=== PATIENT | female | born 1970 | race Two or more races ===

== ENCOUNTER 2020-05-24 11:51 | Outpatient (REF) | payer BC, SELFPAY ==
[2020-05-24 15:07] LABS: Cholesterol 242 mg/dL; HDL Cholesterol 40 mg/dL; LDL Cholesterol Calculated 138 mg/dl; Triglycerides 323 mg/dL
== END 2020-05-24 11:52 | disposition home or self-care (01) ==
LOC: HO.HMGCLDS 11:51
PROVIDERS: PCP Internal Medicine; Visit Provider Internal Medicine
DX: E78.5 Hyperlipidemia, unspecified (principal); F32.9 Major depressive disorder, single episode, unspecified; I10 Essential (primary) hypertension
CPT/HCPCS: 80061

== ENCOUNTER 2020-12-21 13:00 | Outpatient (RCR) | payer BC, SELFPAY ==
--- NOTE | 2020-10-25 10:29 | MHC.PT.EP ---
[facility] [place] Office [place] Office [place] Office [address] Rayshawn Olvera [address] [phone] F: [phone] F: [phone] F: [phone] F: [phone] Physical Therapy Plan of Care Date of Evaluation: 10/25/20 Date of Surgery: Diagnosis: low back pain and sciatica Assessment: The patient has acute low back pain without NANCY. She spends most of her day sitting unsupported with lots of trunk rotation, and using a foot pedal all day. She has been working mandatory OT at work. The patient had ttp during manual palpation of her back and hips. Assessment of her sacrum showed a sacral torsion left on right axis and a left anterior innominant. The patient was educated on her sitting posture. She was asked to take a picture of her workstation for me to assess her work ergonomics. Pt was educated briefly on sitting posture, and log rolling. The patient reports intermittent dyspareunia, as well as deep pain in my pelvis that may warrant an internal exam of her pelvic floor if she does not improve with above listed treatments. This will be addressed in subsequent visits. She is a good candidate for skilled PT to work on work ergonomics, sitting posture, segmental stability, core stabilization Frequency and Duration: The patient will be seen 2x/week x 4 weeks Short Term Goals: 1. Pt to be able to demonstrate improved sitting posture 2. Pt to be able to have improved work ergonomics. 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 Pt to be able to return to 90% of PLOF without limiting pain 2. Pt to be able to return to work and sitting without limiting pain. 3. Pt to be able to have no pain with changing position with sleeping. Treatment Plan: Modalities to reduce pain, spasms and effusion. Manual therapy to restore motion and function. Therapeutic exercise to improve strength and flexibility. Neuromuscular re-education for posture and balance. Therapeutic activities to return to functional activities of daily living. Electronically signed by: Xiomy Slaughter PT DPT Please sign and return to therapist. Thank you for your referral.
--- NOTE | 2020-12-21 13:53 | MHC.PT.DC ---
[facility] Office [place] Office [place] Office [address] Rayshawn Olvera [address] [phone] F: [phone] F: [phone] F: [phone] F: [phone] Physical Therapy Discharge Report Diagnosis: low back pain and sciatica Date of Surgery: Date of Evaluation: 10/25/20 Date of Discharge: 12/21/20 Treatments to Date: 13 Cancellations to Date: No Shows to Date: Discharge Status: Achieved Goals Improved Function Independent with HEP Discharge Summary: Pt arrived reporting she had no pain today. She reports while she was stretching she felt like something popped and went back into place. The heel lift has been helping tremendously, which was issued last visit ( one level in her right shoe) She is independent with her HEP. She was issued pictures and theraband. Electronically signed by: Xiomy Slaughter PT DPT Please sign and return to therapist. Thank you for your referral.
== END 2020-12-22 08:00 | disposition home or self-care (01) ==
LOC: HO.PT 13:00
PROVIDERS: PCP Internal Medicine; Visit Provider Physician Assistant
DX: M54.40 Lumbago with sciatica, unspecified side (principal)
CPT/HCPCS: 97110; 97112; 97140; 97162; 97530

== ENCOUNTER 2021-04-27 09:47 | Outpatient (REF) | payer BC, SELFPAY ==
[2021-04-27 11:33] LABS: Hematocrit 41.8 % (37-47); Hemoglobin 13.9 g/dl (12.0-16.0); Mean Corpuscular HGB Conc 33.3 g/dl (31.0-35.0); Mean Corpuscular Volume 90.1 fL (80-98); Mean Platelet Volume 9.9 fL (9.4-12.3); Platelet Count 281 X10*3/uL (160-400); Red Blood Count 4.64 X10*6/uL (4.20-5.50); Red Cell Distribution Width 13.3 % (11.0-16.0); White Blood Count 7.5 X10*3/uL (4.8-10.8)
[2021-04-27 11:55] LABS: Alanine Aminotransferase 54 U/L (0-31); Albumin Level 4.3 g/dL (3.5-5.0); Alkaline Phosphatase 89 U/L (39-117); Anion Gap 13 (12-20); Aspartate Amino Transferase 31 U/L (5-31); Bilirubin Total 0.8 mg/dL (0.0-1.0); Blood Urea Nitrogen 9 mg/dL (9-16); Calcium 9.5 mg/dL (8.4-10.2); Carbon Dioxide 27 mmol/L (22-29); Chloride 105 mmol/L (96-108); Cholesterol 256 mg/dL; Estimated Glomerular Filt Rate > 60; Glucose Fasting 95 mg/dL (60-99); HDL Cholesterol 39 mg/dL; LDL Cholesterol Calculated 148 mg/dl; Potassium 4.6 mmol/L (3.3-5.1); Sodium 140 mmol/L (135-145); Total Protein 6.7 g/dL (6.5-8.0); Triglycerides 347 mg/dL
[2021-04-27 12:18] LABS: TSH reflex Free T4 2.07 uIU/mL (0.32-4.0)
[2021-04-28 07:31] LABS: Estimated Average Glucose 94 mg/dL; Hemoglobin A1c % 4.9 %
== END 2021-04-27 09:48 | disposition home or self-care (01) ==
LOC: HO.HMGCLDS 09:47
PROVIDERS: PCP Internal Medicine; Visit Provider Internal Medicine
DX: Z00.00 Encounter for general adult medical examination without abnormal findings (principal); I10 Essential (primary) hypertension; E78.5 Hyperlipidemia, unspecified; F41.9 Anxiety disorder, unspecified
CPT/HCPCS: 36415; 80053; 80061; 83036; 84443; 85027

== ENCOUNTER 2021-05-31 10:54 | Outpatient (REF) | payer BC, SELFPAY ==
--- NOTE | ~2021-05-31 | MM_ITS ---
EXAMINATION: MM SCREENING DIGITAL BREAST TOMOSYNTHESIS, BILATERAL CLINICAL INFORMATION: Screening. Asymptomatic. The lifetime risk of breast cancer based on the Tyrer-Cuzick Model is 12%. COMPARISON: Mammography: 09/13/2016 TECHNIQUE: Digital breast tomosynthesis is performed in both the craniocaudal and mediolateral oblique views along with computer-aided detection (CAD). Synthesized 2D images are generated from the tomosynthesis. FINDINGS: There are scattered areas of fibroglandular density (ACR BI-RADS breast composition Category b). Parenchymal pattern borders on heterogeneously dense. There is fibronodular pattern similar to prior exam. There is no interval mass or architectural abnormality or abnormal calcifications. The axilla and skin contours are unremarkable. MM/MM tomosynthesis screening BI IMPRESSION: No mammographic evidence of malignancy. ASSESSMENT: BI-RADS 2: Benign RECOMMENDATION: Routine annual mammography screening. This patient's information was entered into a reminder system with a target due date for their next mammogram.
== END 2021-05-31 10:55 | disposition home or self-care (01) ==
LOC: HO.MAMMO 10:54
PROVIDERS: Visit Provider Internal Medicine
DX: Z12.31 Encounter for screening mammogram for malignant neoplasm of breast (principal)
CPT/HCPCS: 77063; 77067

== ENCOUNTER 2021-11-02 11:30 | Outpatient (REF) | payer BC, SELFPAY ==
[2021-11-02 13:39] LABS: Hematocrit 41.9 % (37.0-47.0); Hemoglobin 13.8 g/dl (12.0-16.0); Mean Corpuscular HGB Conc 32.9 g/dl (31.0-35.0); Mean Corpuscular Hemoglobin 29.7 pg (27.0-33.0); Mean Corpuscular Volume 90.1 fL (80.0-98.0); Platelet Count 349 X10*3/uL (160-400); Red Blood Count 4.65 X10*6/uL (4.20-5.50); Red Cell Distribution Width 12.9 % (11.0-16.0); White Blood Count 7.1 X10*3/uL (4.8-10.8)
[2021-11-02 14:10] LABS: Alanine Aminotransferase 65 U/L (0-31); Albumin Level 4.2 g/dL (3.5-5.0); Alkaline Phosphatase 93 U/L (39-117); Anion Gap 12 (12-20); Aspartate Amino Transferase 41 U/L (5-31); Bilirubin Total 0.8 mg/dL (0.0-1.0); Blood Urea Nitrogen 9 mg/dL (9-16); Calcium 9.4 mg/dL (8.4-10.2); Carbon Dioxide 27 mmol/L (22-29); Chloride 106 mmol/L (96-108); Cholesterol 263 mg/dL; Estimated Glomerular Filt Rate > 60; Glucose Fasting 99 mg/dL (60-99); HDL Cholesterol 35 mg/dL; LDL Cholesterol Calculated 172 mg/dl; Potassium 4.3 mmol/L (3.3-5.1); Sodium 141 mmol/L (135-145); Total Protein 7.1 g/dL (6.5-8.0); Triglycerides 282 mg/dL
== END 2021-11-02 11:31 | disposition home or self-care (01) ==
LOC: HO.HMGCLDS 11:30
PROVIDERS: PCP Internal Medicine; Visit Provider Internal Medicine
DX: E78.5 Hyperlipidemia, unspecified (principal); I10 Essential (primary) hypertension
CPT/HCPCS: 36415; 80053; 80061; 85027

== ENCOUNTER 2022-05-01 11:56 | Outpatient (REF) | payer BC, SELFPAY ==
--- NOTE | ~2022-05-01 | XR_ITS ---
EXAMINATION: XR MANDIBLE CLINICAL INFORMATION: Inflammatory conditions of jaw COMPARISON: None TECHNIQUE: 4 views of the mandible were obtained. FINDINGS: There are no fractures or dislocations. No bone, joint or soft tissue abnormality is demonstrated. Mild degenerative changes of the visualized cervical spine. Visualized lung apices are well aerated. Visualized paranasal sinuses appear well aerated. XR/XR mandible min 4V IMPRESSION: Unremarkable examination.
[2022-05-01 14:06] LABS: MANUAL DIFF FLAG NO
[2022-05-01 14:16] LABS: Basophils Percent Auto 0.5 % (0-2); Eosinophils Absolute Auto 0.4 X10*3/uL (0.0-0.4); Eosinophils Percent Auto 5.6 % (0-4); Hematocrit 41.9 % (37.0-47.0); Hemoglobin 13.5 g/dl (12.0-16.0); Imm Gran Abs Auto 0.02 X10*3/uL (0.00-0.03); Imm Gran Pct Auto 0.3 % (0.0-0.4); Lymphocytes Absolute Auto 2.5 X10*3/uL (1.2-4.9); Lymphocytes Percent Auto 37.9 % (20-40); Mean Corpuscular HGB Conc 32.2 g/dl (31.0-35.0); Mean Corpuscular Volume 89.9 fL (80.0-98.0); Mean Platelet Volume 10.1 fL (9.4-12.3); Monocytes Absolute Auto 0.7 X10*3/uL (0.1-1.2); Neutrophils Percent Auto 45.7 % (45-73); Platelet Count 312 X10*3/uL (160-400); Red Blood Count 4.66 X10*6/uL (4.20-5.50); Red Cell Distribution Width 13.2 % (11.0-16.0); White Blood Count 6.6 X10*3/uL (4.8-10.8)
[2022-05-01 14:29] LABS: Alanine Aminotransferase 46 U/L (0-31); Albumin Level 4.4 g/dL (3.5-5.0); Alkaline Phosphatase 82 U/L (39-117); Anion Gap 13 (12-20); Aspartate Amino Transferase 29 U/L (5-31); Bilirubin Total 0.5 mg/dL (0.0-1.0); Blood Urea Nitrogen 10 mg/dL (9-16); Calcium 9.3 mg/dL (8.4-10.2); Carbon Dioxide 27 mmol/L (22-29); Chloride 106 mmol/L (96-108); Cholesterol 251 mg/dL; Estimated Glomerular Filt Rate > 60; Glucose Fasting 98 mg/dL (60-99); HDL Cholesterol 37 mg/dL; LDL Cholesterol Calculated 155 mg/dl; Potassium 4.5 mmol/L (3.3-5.1); Sodium 141 mmol/L (135-145); Total Protein 7.1 g/dL (6.5-8.0); Triglycerides 299 mg/dL
[2022-05-01 14:52] LABS: TSH reflex Free T4 1.89 uIU/mL (0.32-4.0); Vitamin D 25-OH Total 35.4 ng/mL (>30)
[2022-05-01 17:00] LABS: Appearance Urine Turbid; Color Urine Yellow; Glucose Urine UA Negative (Negative); Leukocyte Esterase Urine Trace (Negative); Nitrite Urine Negative (Negative); PH 5.5 (5.0-9.0); UMIC TRIGGER UA YES; Urine Blood Negative (Negative); Urine Ketones Negative (Negative); Urine Protein Negative (Neg-Trace)
[2022-05-01 17:06] LABS: Bacteria Urine None Seen (None Seen); Hyaline Casts Urine 0-2 /LPF (0-2); RBC Urine 0-2 /HPF (0-2); WBC Urine 0-5 /HPF (0-5)
== END 2022-05-01 11:57 | disposition home or self-care (01) ==
LOC: HO.HMGCX 11:56
PROVIDERS: PCP Internal Medicine; Visit Provider Internal Medicine
DX: Z00.00 Encounter for general adult medical examination without abnormal findings (principal); M27.2 Inflammatory conditions of jaws; E78.5 Hyperlipidemia, unspecified; I10 Essential (primary) hypertension
CPT/HCPCS: 36415; 70110; 80053; 80061; 81001; 82306; 84443; 85025

== ENCOUNTER 2022-06-03 10:43 | Outpatient (REF) | payer BC, SELFPAY ==
--- NOTE | ~2022-06-03 | MM_ITS ---
EXAMINATION: MM SCREENING DIGITAL BREAST TOMOSYNTHESIS, BILATERAL CLINICAL INFORMATION: Screening. Asymptomatic. The lifetime risk of breast cancer based on the Tyrer-Cuzick Model is 9.5%. COMPARISON: Mammography: May 31, 2021 and September 13, 2016 TECHNIQUE: Digital breast tomosynthesis is performed in both the craniocaudal and mediolateral oblique views along with computer-aided detection (CAD). Synthesized 2D images are generated from the tomosynthesis. FINDINGS: The breasts are heterogeneously dense, which may obscure small masses (ACR BI-RADS breast composition Category c). There are no significant masses, abnormal calcifications, or other abnormalities. MM/MM tomosynthesis screening BI IMPRESSION: No significant changes from prior exam. ASSESSMENT: BI-RADS 1: Negative RECOMMENDATION: Routine annual mammography screening. This patient's information was entered into a reminder system with a target due date for their next mammogram.
== END 2022-06-03 10:44 | disposition home or self-care (01) ==
LOC: HO.MAMMO 10:43
PROVIDERS: PCP Internal Medicine; Visit Provider Internal Medicine
DX: Z12.31 Encounter for screening mammogram for malignant neoplasm of breast (principal)
CPT/HCPCS: 77063; 77067

== ENCOUNTER 2022-07-08 11:32 | Outpatient (REF) | payer BC, SELFPAY ==
[2022-07-08 14:29] LABS: Alanine Aminotransferase 59 U/L (0-31); Albumin Level 4.4 g/dL (3.5-5.0); Alkaline Phosphatase 87 U/L (39-117); Anion Gap 12 (12-20); Aspartate Amino Transferase 34 U/L (5-31); Bilirubin Total 0.6 mg/dL (0.0-1.0); Blood Urea Nitrogen 10 mg/dL (9-16); Calcium 9.6 mg/dL (8.4-10.2); Carbon Dioxide 26 mmol/L (22-29); Chloride 106 mmol/L (96-108); Cholesterol 177 mg/dL; Estimated Glomerular Filt Rate > 60; Glucose Fasting 103 mg/dL (60-99); HDL Cholesterol 42 mg/dL; LDL Cholesterol Calculated 92 mg/dl; Potassium 4.1 mmol/L (3.3-5.1); Sodium 140 mmol/L (135-145); Triglycerides 218 mg/dL
== END 2022-07-08 11:33 | disposition home or self-care (01) ==
LOC: HO.HMGCLDS 11:32
PROVIDERS: PCP Internal Medicine; Visit Provider Internal Medicine
DX: E78.5 Hyperlipidemia, unspecified (principal)
CPT/HCPCS: 36415; 80053; 80061

== ENCOUNTER 2022-08-14 10:38 | Outpatient (REF) | payer BC, SELFPAY ==
[2022-08-14 15:09] LABS: CT PCR NOT DETECTED (Not Detect.); NG PCR NOT DETECTED (Not Detect.)
[2022-08-15 08:04] LABS: Follicle Stimulating Hormone 78.3 mIU/mL
[2022-08-27 16:30] LABS: HPV mRNA E6/E7 rflx Not Detected (Not Detected)
== END 2022-08-14 10:39 | disposition home or self-care (01) ==
LOC: HO.LNP 10:38
PROVIDERS: PCP Internal Medicine; Visit Provider Advanced Practice Midwife
DX: Z01.419 Encounter for gynecological examination (general) (routine) without abnormal findings (principal); R23.2 Flushing; Z97.5 Presence of (intrauterine) contraceptive device; Z30.431 Encounter for routine checking of intrauterine contraceptive device
CPT/HCPCS: 0353U; 83001; 87624; 88142

== ENCOUNTER 2022-08-21 12:54 | Outpatient (REF) | payer BC, SELFPAY | END 2022-08-21 12:55 | disposition home or self-care (01) | LOC: HO.LNP 12:54 | PROVIDERS: Visit Provider Advanced Practice Midwife | DX: Z13.89 Encounter for screening for other disorder (principal) ==

== ENCOUNTER 2023-05-21 16:32 | Inpatient (IN) | payer BC, SELFPAY ==
[2023-05-21 17:20] VITALS: BP 177/108; PULSE 108; RESP 20; TEMP 36.5; O2SAT 98; BMI 35.0
[2023-05-21] MEDS: diphenhydrAMINE HCL 50 MG/ML VIAL IM (17:30)
[2023-05-21] MEDS: LORazepam 2 MG/ML VIAL IM (17:30)
[2023-05-21] MEDS: Haloperidol Lactate 5 MG/ML VIAL IM (17:30)
--- NOTE | 2023-05-21 17:48 | ED.PSYCH ---
HPI - Psych General Chief Complaint: Psychiatric Symptoms Stated Complaint: sect. 12 via CHD, anxiety, confused Time Seen by Provider: 05/21/23 16:57 Source: family Mode of arrival: ambulatory Limitations: no limitations History of Present Illness HPI Narrative: Patient comes to the emergency room accompanied by her . Patient and her are Pashto speaking only. Formation was obtained mostly through the via ANDREA logistics team lead. Patient is unable to give any history, patient smiles, walks away in circles, does not know why she is here. The explains that the patient has been acting anxious, confused, states that the he is unaware if the patient has been taking his psychiatric medications, does not know which medications he takes. Related Data Home Medications Medication Instructions Recorded Confirmed cariprazine 1.5 mg capsule 1.5 mg PO Q OTHER DAY 10/14/20 05/21/23 (Vraylar) escitalopram oxalate 10 mg tablet 15 mg PO DAILY 10/19/20 05/21/23 trazodone 50 mg tablet 50 mg PO BEDTIME PRN insomnia 05/21/23 05/21/23 Previous Rx's Medication Instructions Recorded rosuvastatin 10 mg tablet (Crestor) 10 mg PO DAILY #90 tabs 07/09/22 lisinopril 5 mg tablet 5 mg PO DAILY #90 tabs 05/20/23 Allergies Allergy/AdvReac Type Severity Reaction Status Date / Time povidone-iodine [Betadine] Allergy Unknown discomfort, Verified 01/02/23 09:55 no swelling or pain soap [Betadine] Allergy Unknown discomfort, Verified 01/02/23 09:55 no swelling or pain Review of Systems Review of Systems: Yes Unobtainable due to mental condition [facility] Past Medical History Medical History Normal colonoscopy Annual physical exam Psychosis Depression Chronic anxiety Hyperlipidemia HTN (hypertension) Surgical History Hx of cholecystectomy Family History Family History Father Glaucoma Mother Arthritis Maternal Aunt Breast cancer Social History Social History Housing: House Alcohol intake: current Alcohol intake frequency: does not drink Patient Tobacco Use Status: Never used Tobacco e-Cigarette/Vaping Use: Never Used Advance Directives: No Advance Directives Information Provided: No Current occupational status: employed Cognitive needs: No Hearing needs: No Vision needs: Yes Physical Exam Vital Signs: Vital Signs: Last Vital Signs Temp 97.5 F 05/21/23 18:15 Pulse 101 H 05/21/23 18:15 Resp 18 05/21/23 18:15 BP 146/101 H 05/21/23 18:15 Pulse Ox 98 05/21/23 18:15 O2 Del Method Room Air 05/21/23 18:15 BMI result Body Mass Index 35.0 Const: Other: Appearance: Alert. No acute distress Eyes: Pupils equal, round and reactive to light. ENT: Pharynx normal. Neck: Normal inspection. Neck supple. No lymph nodes noted. No crepitus CVS: Normal heart rate and rhythm. Pulses normal. Normal S1 and S2 Respiratory: No respiratory distress. Breath sounds normal. No Wheezing. No rales Abdomen: Soft and nontender. No rigidity. No distention. Skin: Skin warm and dry. Normal skin color. Normal skin turgor. Extremities: No lower extremity edema. No Lacerations. No Rash Neuro: A deficits, Moving all extremities. No slurred speech. CN 2 through 12 grossly intact Psych: calm, cooperative, patient speaking to logistics team lead, then stops talking, walks away, comes back, patient seems scattered Medications Administered Discontinued Medications Generic Name Dose Route Start Last Admin Trade Name Freq PRN Reason Stop Dose Admin Diphenhydramine HCl 50 mg 05/21/23 17:47 05/21/23 17:30 Diphenhydramine Hcl 50 Mg/Ml Vial IM 05/21/23 17:48 50 mg ONCE ONE Administration Haloperidol Lactate 5 mg 05/21/23 17:47 05/21/23 17:30 Haloperidol Lactate 5 Mg/Ml Vial IM 05/21/23 17:48 5 mg STAT STA Administration Lorazepam 2 mg 05/21/23 17:47 05/21/23 17:30 Lorazepam 2 Mg/Ml Vial IM 05/21/23 17:48 2 mg STAT STA Administration Medical Decision Making Medical Decision Making MDM Narrative: -my interpretation of labs: Normal hematology, normal chemistry, LFTs slightly elevated, chronic. Urinalysis pending, urine toxicology pending -patient is on a Section 12, patient's agreeable -care team consult pending -per patient's past medical history history, seems that patient was hospitalized in March of 2020 for psychosis Differential Diagnosis Differential Diagnoses: The differential diagnosis associated with the presentation includes (Psychosis, anxiety, depression) Admission/Observation Consideration of admission/observation: Escalation of care including admission/observation considered (Patient will likely need inpatient treatment. Patient on a Section 12, disposition pending by the care team) Lab Data MDM Lab Attestation statement: I reviewed the patient's lab results. 05/21/23 17:56 05/21/23 17:56 Labs: Lab Results 05/21/23 Range/Units 17:56 WBC 9.0 (4.8-10.8) X10*3/uL RBC 5.29 (4.20-5.50) X10*6/uL Hgb 15.4 (12.0-16.0) g/dl Hct 46.2 (37.0-47.0) % MCV 87.3 (80.0-98.0) fL MCH 29.1 (27.0-33.0) pg MCHC 33.3 (31.0-35.0) g/dl RDW 13.1 (11.0-16.0) % Plt Count 356 (160-400) X10*3/uL MPV 9.4 (9.4-12.3) fL Immature Gran % (Auto) 0.2 (0.0-0.4) % Neut % (Auto) 67.3 (45-73) % Lymph % (Auto) 23.8 (20-40) % Wharton % (Auto) 7.4 (2-11) % Eos % (Auto) 1.1 (0-4) % Baso % (Auto) 0.2 (0-2) % Lymph # (Auto) 2.1 (1.2-4.9) X10*3/uL Wharton # (Auto) 0.7 (0.1-1.2) X10*3/uL Eos # (Auto) 0.1 (0.0-0.4) X10*3/uL Baso # (Auto) 0.0 (0.0-0.2) X10*3/uL Abs Immat Gran (auto) 0.02 (0.00-0.03) X10*3/uL Absolute Neuts (auto) 6.0 (2.0-8.3) x10*3/uL Absolute Nucleated RBC 0.000 (0.0-0.012) X10*3/uL Nucleated RBC % (auto) 0.0 (0.0-0.2) /100WBC Sodium 142 (135-145) mmol/L Potassium 3.9 (3.3-5.1) mmol/L Chloride 105 (96-108) mmol/L Carbon Dioxide 23 (22-29) mmol/L Anion Gap 18 (12-20) BUN 12 (9-16) mg/dL Creatinine 0.81 (0.5-1.4) mg/dL Estim Creat Clear Calc 79.8 Estimated GFR > 60 Random Glucose 130 H (60-115) mg/dL Calcium 10.2 D (8.4-10.2) mg/dL Total Bilirubin 1.0 (0.0-1.0) mg/dL AST 38 H (5-31) U/L ALT 68 H (0-31) U/L Alkaline Phosphatase 89 (39-117) U/L Total Protein 8.3 H (6.5-8.0) g/dL Albumin 5.1 H (3.5-5.0) g/dL Salicylates < 5.0 L (15-30) mg/dL Acetaminophen < 17 (<30) mcg/mL Ethyl Alcohol < 10 mg/dL Critical Care Time Critical Care Time Critical Care Time: Yes Total Critical Care Time: 60 Attestation: I have personally provided critical care time. Time includes review of lab data, radiology results, discussion with consultants, and monitoring for potential decompensation. Intervention performed as documented. Discharge Plan Discharge Clinical Impression: Psychosis Patient Disposition: Still a Patient Prescriptions: No Action rosuvastatin [Crestor] 10 mg tablet 10 mg PO DAILY Qty: 90 3RF lisinopril 5 mg tablet 5 mg PO DAILY Qty: 90 3RF trazodone 50 mg tablet 50 mg PO BEDTIME PRN (Reason: insomnia) Vraylar 1.5 mg capsule 1.5 mg PO Q OTHER DAY escitalopram oxalate 10 mg tablet 15 mg PO DAILY Interventions: [place]-Suicide Risk Severity Scale Last Done: 05/21/23 18:15
[2023-05-21 18:02] LABS: MANUAL DIFF FLAG NO
[2023-05-21 18:11] LABS: Basophils Percent Auto 0.2 % (0-2); Eosinophils Absolute Auto 0.1 X10*3/uL (0.0-0.4); Eosinophils Percent Auto 1.1 % (0-4); Hematocrit 46.2 % (37.0-47.0); Hemoglobin 15.4 g/dl (12.0-16.0); Imm Gran Abs Auto 0.02 X10*3/uL (0.00-0.03); Imm Gran Pct Auto 0.2 % (0.0-0.4); Lymphocytes Absolute Auto 2.1 X10*3/uL (1.2-4.9); Lymphocytes Percent Auto 23.8 % (20-40); Mean Corpuscular HGB Conc 33.3 g/dl (31.0-35.0); Mean Corpuscular Hemoglobin 29.1 pg (27.0-33.0); Mean Corpuscular Volume 87.3 fL (80.0-98.0); Mean Platelet Volume 9.4 fL (9.4-12.3); Monocytes Absolute Auto 0.7 X10*3/uL (0.1-1.2); Monocytes Percent Auto 7.4 % (2-11); Neutrophils Percent Auto 67.3 % (45-73); Platelet Count 356 X10*3/uL (160-400); Red Blood Count 5.29 X10*6/uL (4.20-5.50); Red Cell Distribution Width 13.1 % (11.0-16.0)
[2023-05-21 18:15] VITALS: BP 146/101; PULSE 101; RESP 18; TEMP 36.4; O2SAT 98
--- NOTE | 2023-05-21 18:17 | PC.NURSE ---
Candi was BIBA accompanied by her for increase in confusion, disorganization and bizarre behavior. Candi is on a section 12 and is Serbian speaking only. Shower Screen Installer utilized to complete admission. Candi was unwilling to change into hospital scrubs and would laugh or giggle when asked. She would turn away from the airline operations agent and begin to talk to her who reported this was how she has been acting for days and that she would not be able to understand the directions the airline operations agent was giving her. IM medications given at 1730. 50MG Benadryl, 5mg Haldol and 2mg Lorazepam. Candi was able to get changed after medications given. Blood drawn. Urine still not collected. Candi is currently resting.
[2023-05-21 18:18] LABS: Ethanol < 10 mg/dL
[2023-05-21 18:20] LABS: Alanine Aminotransferase 68 U/L (0-31); Albumin Level 5.1 g/dL (3.5-5.0); Alkaline Phosphatase 89 U/L (39-117); Anion Gap 18 (12-20); Aspartate Amino Transferase 38 U/L (5-31); Blood Urea Nitrogen 12 mg/dL (9-16); Calcium 10.2 mg/dL (8.4-10.2); Carbon Dioxide 23 mmol/L (22-29); Chloride 105 mmol/L (96-108); Creatinine Clr Calc Pharmacy 79.8; Estimated Glomerular Filt Rate > 60; Glucose Random 130 mg/dL (60-115); Potassium 3.9 mmol/L (3.3-5.1); Sodium 142 mmol/L (135-145); Total Protein 8.3 g/dL (6.5-8.0)
[2023-05-21 18:24] LABS: Acetaminophen LAB < 17 mcg/mL (<30); Salicylate < 5.0 mg/dL (15-30)
[2023-05-21] MEDS: OLANZapine 10 MG TABLET PO (23:18)
[2023-05-21 23:27] VITALS: BP 177/115; PULSE 120; RESP 20; TEMP 36.8; O2SAT 97
[2023-05-21 23:39] LABS: Appearance Urine Clear; Color Urine Yellow; Glucose Urine UA Negative (Negative); Leukocyte Esterase Urine Trace (Negative); Nitrite Urine Negative (Negative); Specific Gravity - Urine 1.015 (1.005-1.025); UMIC TRIGGER UACC YES; Urine Blood Small (1+) (Negative); Urine Ketones Trace mg/dL (Negative); Urine Protein Trace mg/dL (Neg-Trace)
[2023-05-21 23:40] LABS: UPreg QC Valid YES; Urine Pregnancy NEGATIVE (NEGATIVE)
[2023-05-21 23:44] LABS: Bacteria Urine None Seen (None Seen); Hyaline Casts Urine 0-2 /LPF (0-2); WBC Urine 0-5 /HPF (0-5)
[2023-05-21 23:46] LABS: Amphetamine Screen Urine Not Detected (Not Detect); Barbiturates, Urine Not Detected (Not Detect); Benzodiazepines Screen Urine Not Detected (Not Detect); Cannabinoid Screen Urine Not Detected (Not Detect); Cocaine Screen Urine Not Detected (Not Detect); Fentanyl, urine Not Detected (Not Detect); Opiate Screen Urine Not Detected (Not Detect); Phencyclidine Screen Urine Not Detected (Not Detect)
[2023-05-21] MEDS: lisinopriL 5 MG TABLET PO (23:58)
[2023-05-21] MEDS: traZODone HCL 50 MG TABLET PO (23:59)
[2023-05-21] MEDS: Acetaminophen 325 MG TABLET 975 MG PO (23:59)
--- NOTE | 2023-05-22 | ECG_ITS ---
Test Reason : TACHYCARDIA Blood Pressure : / mmHG Vent. Rate : 131 BPM Atrial Rate : 131 BPM P-R Int : 132 ms QRS Dur : 074 ms QT Int : 318 ms P-R-T Axes : 070 069 043 degrees QTc Int : 469 ms Sinus tachycardia Possible Left atrial enlargement Borderline ECG When compared with ECG of 17-JUL-2009 06:04, No significant change was found Referred By: Annabel Mejia Electronically Signed By:DENA DRAKE MD
--- NOTE | 2023-05-22 00:18 | PC.NURSE ---
Patient is currently in bed, resting quietly, Tylenol 975 mg administered with her HS medication including Lisinopril 5 mg, Olanzapine 10 mg po administered earlier for racing thought, patient assessed by [facility] in the community, disposition is section 12 inpatient bed search, patient is primarily maldivian speaking but understand Japanese for basic communication, behavior non concerning at this time, labds completed/resulted, will continue to monitor.
[2023-05-22 08:54] LABS: COVID-19 Test Negative (Negative); IDNOW Serial# BCCEAD1C
[2023-05-22 09:42] VITALS: BP 151/91; PULSE 153; RESP 18; TEMP 36.9; O2SAT 99
[2023-05-22 11:33] VITALS: BP 155/102; PULSE 146; RESP 19; TEMP 36.8; O2SAT 98
[2023-05-22] MEDS: lisinopriL 5 MG TABLET PO (11:40)
[2023-05-22 16:13] VITALS: BP 146/93; PULSE 120; RESP 18; TEMP 36.6; O2SAT 98
--- NOTE | 2023-05-22 16:14 | PC.NURSE ---
PT OOB today and visible in the milieu, pleasant when engaged but disorganized and confused at times. Attempted manager of quality with ipad as she is mainly Turkmen speaking but this seemed to confuse her more. Very little information obtained with manager of quality. Candi took her Lisinopril this morning but refused the Lexapro and atorvastatin. Asking for paper and a marker frequently, much of what she is doing appears to be scribbling and drawing shapes and lines. Called her daughter and multiple times. Asked this health science writer to help me and stood very close touching this health science writer's arm and attempting to touch 2 necklaces. Redirected and was responsive to this.
--- NOTE | 2023-05-22 18:52 | PHA.MEDREC ---
Pharmacy Consult ? Medication Reconciliation Pharmacy has completed the medication reconciliation. Reviewed med rec done by nursing
[2023-05-22] MEDS: traZODone HCL 50 MG TABLET PO (20:52)
--- NOTE | 2023-05-22 23:20 | PC.ADMIT ---
Patient is a 52 year old Welsh speaking female admitted as a CV admission to at 1750 and placed on 15 minute safety checks. Patient was medically cleared in the [facility], evaluated by the CARE team and deemed in need of IPLOC secondary to increased confusion and question of whether she is being compliant with her medications. Patient was pleasant but confused when she arrived on the unit. She was cooperative with skin check and then took a shower. Patient denied any SI, HI, AH, or VH. She did not sign any legals but was able to answer a few questions. Patient has been on in the past and is know to the CARE team. Patient relaxed and pleasant with peers.
[2023-05-23] MEDS: hydrOXYzine HCL 25 MG TABLET PO ×3 (00:20→21:13)
[2023-05-23] MEDS: traZODone HCL 50 MG TABLET PO ×2 (00:20→22:31)
[2023-05-23 06:00] VITALS: BP 133/82; PULSE 118; RESP 18; TEMP 36.9; O2SAT 97
[2023-05-23] MEDS: lisinopriL 5 MG TABLET PO (08:25)
[2023-05-23] MEDS: Atorvastatin Calcium 40 MG TABLET PO (08:25)
[2023-05-23] MEDS: Escitalopram Oxalate 5 MG TABLET 15 MG PO (08:29)
--- NOTE | 2023-05-23 08:54 | HO.PSYADMNOT ---
HPI Date of Service: 05/23/23 Chief Complaint: psychosis Sources of Information: patient interviewed, chart reviewed and crisis/core team assessment reviewed HPI Subjective Notes: Michel Warning (given and shows understanding) and Conditional Voluntary Narrative: Mrs. Hanna is a 52 year-old woman with hx of Bipolar Disorder who was assessed in the community by [facility] due to pt presenting as not sleeping, more paranoid after having encounter with person at work. Pt has been taking less often antipsychotic vraylar as pt reports palpitations. Note that in the ED, her HR has been in 150's and in the past she has been on metoprolol. In the ED, pt presented as agitated, kneeling and at times putting her self on the floor. She reported feeling worried that someone is trying to hurt her. Her utox is negative. On the unit, pt seen with Greenlandic towboat operator. Pt initially guarded, but later more forthcoming about extend of delusional content. Pt believes that a seamstress in [place] cast a spell on her when she was a child. She reports lately she is worried that because of the spell someone is trying to hurt her. She reports she feels palpitations are due to spell. She reports at first someone insert energy to her and later someone is taking energy from me. She denies SI/HI. She reports she wants to help people, not hurt them. She reports poor sleep. She reports reason for not taking vraylar daily is because palpitation and her prescriber suggesting taking it only 3 times a week a dose of 1.5mg po. Past Psychiatric History: Inpatient: about 4 previous inpatient admission. Last one was 03/2020 M5 OP: LIZZY Sandoval Past trials: risperidone, olanzapine, vraylar Medical Evaluation Reviewed: Yes [facility] Medical History Normal colonoscopy Annual physical exam Psychosis Depression Chronic anxiety Hyperlipidemia HTN (hypertension) Surgical History Hx of cholecystectomy Family History: none Social History: Pt . She has one daughter and a son. She lives with and son. She is originally from [place]. 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 Substance History: None Trauma History: Not disclosed Diagnostics Vital Signs (24Hr): Vital Signs - 24 hr 10/12/23 09:42 05/22/23 11:33 05/22/23 16:13 Temperature 98.5 F 98.3 F 97.8 F Pulse Rate 153 H 146 H 120 H Respiratory Rate 18 19 18 Blood Pressure 151/91 H 155/102 H 146/93 H Pulse Oximetry 99 98 98 Oxygen Delivery Method Room Air Room Air Room Air 05/23/23 06:00 Temperature 98.4 F Pulse Rate 118 H Respiratory Rate 18 Blood Pressure 133/82 Pulse Oximetry 97 Oxygen Delivery Method Room Air BMI result Body Mass Index 35.0 Labs 05/21/23 17:56 05/23/23 07:52 Labs: Laboratory Results - last 48 hr 05/21/23 05/21/23 05/22/23 17:56 23:20 08:28 WBC 9.0 RBC 5.29 Hgb 15.4 Hct 46.2 MCV 87.3 MCH 29.1 MCHC 33.3 RDW 13.1 Plt Count 356 MPV 9.4 Immature Gran % (Auto) 0.2 Neut % (Auto) 67.3 Lymph % (Auto) 23.8 Sutter % (Auto) 7.4 Eos % (Auto) 1.1 Baso % (Auto) 0.2 Lymph # (Auto) 2.1 Sutter # (Auto) 0.7 Eos # (Auto) 0.1 Baso # (Auto) 0.0 Abs Immat Gran (auto) 0.02 Absolute Neuts (auto) 6.0 Absolute Nucleated RBC 0.000 Nucleated RBC % (auto) 0.0 Sodium 142 Potassium 3.9 Chloride 105 Carbon Dioxide 23 Anion Gap 18 BUN 12 Creatinine 0.81 Estim Creat Clear Calc 79.8 Estimated GFR > 60 Random Glucose 130 H Calcium 10.2 D Total Bilirubin 1.0 AST 38 H ALT 68 H Alkaline Phosphatase 89 Total Protein 8.3 H Albumin 5.1 H Urine Color Yellow Urine Appearance Clear Urine pH 6.0 Ur Specific [place] 1.015 Urine Protein Trace Urine Glucose (UA) Negative Urine Ketones Trace Urine Blood Small (1+) H Urine Nitrite Negative Ur Leukocyte Esterase Trace H Urine RBC 6-10 H Urine WBC 0-5 Ur Squamous Epith Cells 3-5 Urine Bacteria None Seen Hyaline Casts 0-2 Urine Test NEGATIVE Salicylates < 5.0 L Urine Opiates Screen Not Detected Urine Fentanyl Screen Not Detected Acetaminophen < 17 Ur Barbiturates Screen Not Detected Ur Phencyclidine Scrn Not Detected Ur Amphetamines Screen Not Detected U Benzodiazepines Scrn Not Detected Urine Cocaine Screen Not Detected U Marijuana (THC) Screen Not Detected Ethyl Alcohol < 10 COVID-19 (AD) Negative COVID-19 Clin Com See Note Meds/Allergies Meds Home Medications Medication Instructions Recorded Confirmed Type cariprazine 1.5 mg capsule 1.5 mg PO Q OTHER DAY 10/14/20 05/21/23 History (Vraylar) escitalopram oxalate 10 mg tablet 15 mg PO DAILY 10/19/20 05/21/23 History trazodone 50 mg tablet 50 mg PO BEDTIME PRN insomnia 05/21/23 05/21/23 History Allergies Allergies Allergy/AdvReac Type Severity Reaction Status Date / Time povidone-iodine [Betadine] Allergy Unknown discomfort, Verified 01/02/23 09:55 no swelling or pain soap [Betadine] Allergy Unknown discomfort, Verified 01/02/23 09:55 no swelling or pain Mental Status Exam Mental Status Exam Narrative: Appearance:casually groomed, fair hygiene, in NAD behavior:cooperative Psychomotor:no agitation or retardation noted Speech:clear, TP:somewhat tangential- based on towboat operator translation TC:worried that because a spell someone trying to harm her and explaining palpitations (which are not new and she used to be on metoprolol as part of a spell) Mood: anxious Affect:fearful SI:none HI:none VH/AH:hearing voices of angels Delusions:paranoid delusions Insight/judgment:fair x 2. memory/cog: alert, oriented x 3. Assessment & Plan Assessment & Plan (1) Bipolar disorder with psychotic features: Status: Acute Code(s): F31.9 - Bipolar disorder, unspecified Plan Mrs. Hanna is a 52 year-old woman with hx of Bipolar Disorder who was brought to [facility] ED after being assessed by [facility] in the community due to increase paranoia, psychosis, lack of sleep. Utox is negative. Pt noted to have tachycardia. EKG completed, QTc 469, tachycardia. No ST changes. Pt used to be on beta-alex, will start atenolol 25mg po daily. We discussed risks, benefits and alternative treatment options. She has been on risperidone in the past with good effect. Will restart but will monitor orthostatic HOTN, Parkinsonism/tremors or cogwheelm. PLAN 1. Admit to M5, CV, 15 minutes checks for safety 2. D/c lexapro- will worsened psychosis 3. d/c vraylar- pt worried that palpitation will worsen although suspect these are not related to antipsychotic use but independent of. WIll continue to monitor- palpitations, chest pain, may need to follow up with EKG 4. Start risperidone 1mg po BID 5. Obtain collateral information 6. Aftercare planning. Patient educated on: diagnosis and medication risk/benefits Informed Consent: understands Reason for continued inpatient stay Substantial Risk for: inability to function Statement Statement: I have reviewed the history and physical and performed a pertinent examination on my patient. No changes have occurred unless specified. If the History and Physical was not performed prior to admission, the Hospitalist's service will be consulted for completing the admission physical. Time Spent With Patient Time: Total time managing care of this patient today ____ minutes.
[2023-05-23 09:20] LABS: Alanine Aminotransferase 57 U/L (0-31); Albumin Level 4.5 g/dL (3.5-5.0); Alkaline Phosphatase 82 U/L (39-117); Anion Gap 17 (12-20); Aspartate Amino Transferase 35 U/L (5-31); Bilirubin Total 0.9 mg/dL (0.0-1.0); Blood Urea Nitrogen 14 mg/dL (9-16); Calcium 9.7 mg/dL (8.4-10.2); Carbon Dioxide 25 mmol/L (22-29); Chloride 105 mmol/L (96-108); Cholesterol 229 mg/dL (<200); Creatinine Clr Calc Pharmacy 76.9; Estimated Glomerular Filt Rate > 60; Glucose Fasting 153 mg/dL (60-99); HDL Cholesterol 38 mg/dL (>40); LDL Cholesterol Calculated 158 mg/dL (<100); Potassium 3.5 mmol/L (3.3-5.1); Sodium 143 mmol/L (135-145); Total Protein 7.2 g/dL (6.5-8.0); Triglycerides 166 mg/dL (<150)
[2023-05-23] MEDS: risperiDONE 1 MG TABLET PO ×2 (13:40→21:13)
[2023-05-23] MEDS: atenoloL 25 MG TABLET PO (13:41)
[2023-05-23] MEDS: LORazepam 0.5 MG TABLET PO (13:41)
[2023-05-23 13:47] VITALS: BP 152/88; PULSE 112
[2023-05-23 18:00] VITALS: BP 116/67; PULSE 92; TEMP 36.6; O2SAT 98
[2023-05-24] MEDS: risperiDONE 1 MG TABLET PO ×2 (08:26→21:27)
[2023-05-24] MEDS: Atorvastatin Calcium 40 MG TABLET PO (08:26)
[2023-05-24] MEDS: lisinopriL 5 MG TABLET PO (08:26)
[2023-05-24] MEDS: atenoloL 25 MG TABLET PO (08:26)
[2023-05-24 08:30] VITALS: BP 120/70; PULSE 97; RESP 18; TEMP 35.9; O2SAT 98
[2023-05-24] MEDS: Milk of Magnesia 30 ML ORAL.SUSP PO (12:22)
--- NOTE | 2023-05-24 17:32 | HO.PSYCHPN ---
Subjective Subjective Date of Service: 05/24/23 Reason For Visit: psychosis Interim History: pt reports no problems with risperdal; presenting mo e organized; she is oriented to person, self, situation. she is less confused and delusional; no sedation no dizziness no restlessness. Medication Compliance: Yes Side effects from medications: No Attending Groups: Intermittent Review of Systems Acute medical concerns: No Medical Review of Systems: unchanged Review of Systems Review of Systems Pt denies chest pain but reports palpitation. She denies diarrhea, loose stools or constipation She denies BEARD. No SOB. No cough. Yes Unobtainable due to mental condition Mental Status Exam Mental Status Exam Narrative: Appearance:casually groomed, fair hygiene, in NAD behavior:cooperative Psychomotor:no agitation or retardation noted Speech:clear, TP:somewhat tangential- based on staff interpreter translation TC:worried that because a spell someone trying to harm her and explaining palpitations (which are not new and she used to be on metoprolol as part of a spell) Mood: anxious Affect:fearful SI:none HI:none VH/AH:hearing voices of angels Delusions:paranoid delusions Insight/judgment:fair x 2. memory/cog: alert, oriented x 3. Diagnostics Vital Signs (24Hr): Vital Signs - 24 hr 05/23/23 18:00 05/24/23 08:30 Temperature 97.8 F 96.6 F L Pulse Rate 92 97 Respiratory Rate 18 Blood Pressure 116/67 120/70 Pulse Oximetry 98 98 Oxygen Delivery Method Room Air Room Air BMI result Body Mass Index 35.0 Labs 05/21/23 17:56 05/23/23 07:52 Labs: Laboratory Results - last 48 hr 05/23/23 07:52 Sodium 143 Potassium 3.5 Chloride 105 Carbon Dioxide 25 Anion Gap 17 BUN 14 Creatinine 0.84 Estim Creat Clear Calc 76.9 Estimated GFR > 60 Fasting Glucose 153 H Calcium 9.7 Total Bilirubin 0.9 AST 35 H ALT 57 H Alkaline Phosphatase 82 Total Protein 7.2 Albumin 4.5 Triglycerides 166 H Cholesterol 229 H LDL Cholesterol, Calc 158 H HDL Cholesterol 38 L Medications Medications Current Medications Acetaminophen (Acetaminophen 325 Mg Tablet) 650 mg PO Q6H PRN PRN Reason: Headache/Pain Mild Scale (1-3) Al Hydroxide/Mg Hydroxide (Magnesium Hydrox/Alum Hydrox 30 Ml Oral.Susp) 30 ml PO Q6H PRN PRN Reason: Heartburn/Nausea Atenolol (Atenolol 25 Mg Tablet) 25 mg PO DAILY [facility]; Protocol Last Admin: 05/24/23 08:26 Dose: 25 mg Atorvastatin Calcium (Atorvastatin Calcium 40 Mg Tablet) 40 mg PO DAILY [facility] Last Admin: 05/24/23 08:26 Dose: 40 mg Hydroxyzine HCl (Hydroxyzine Hcl 25 Mg Tablet) 25 mg PO Q6H PRN PRN Reason: Anxiety Last Admin: 05/23/23 21:13 Dose: 25 mg Lisinopril (Lisinopril 5 Mg Tablet) 5 mg PO DAILY [facility]; Protocol Last Admin: 05/24/23 08:26 Dose: 5 mg Magnesium Hydroxide (Milk Of Magnesia 30 Ml Oral.Susp) 30 ml PO DAILY PRN PRN Reason: Constipation Last Admin: 05/24/23 12:22 Dose: 30 ml Risperidone (Risperidone 1 Mg Tablet) 1 mg PO BID [facility] Last Admin: 05/24/23 08:26 Dose: 1 mg Trazodone HCl (Trazodone Hcl 50 Mg Tablet) 50 mg PO BEDTIME PRN PRN Reason: insomnia Last Admin: 05/23/23 22:31 Dose: 50 mg Allergies Allergies Allergy/AdvReac Type Severity Reaction Status Date / Time povidone-iodine [Betadine] Allergy Unknown discomfort, Verified 01/02/23 09:55 no swelling or pain soap [Betadine] Allergy Unknown discomfort, Verified 01/02/23 09:55 no swelling or pain Assessment & Plan Assessment & Plan (1) Bipolar disorder with psychotic features: Status: Acute Code(s): F31.9 - Bipolar disorder, unspecified Plan Mrs. Hanna is a 52 year-old woman with hx of Bipolar Disorder who was brought to [facility] after being assessed by [facility] in the community due to increase paranoia, psychosis, lack of sleep. Utox is negative. Pt noted to have tachycardia. EKG completed, QTc 469, tachycardia. No ST changes. Pt used to be on beta-alex, will start atenolol 25mg po daily. We discussed risks, benefits and alternative treatment options. She has been on risperidone in the past with good effect. Will restart but will monitor orthostatic HOTN, Parkinsonism/tremors or cogwheelm. PLAN 1. Admit to M5, CV, 15 minutes checks for safety 2. D/c lexapro- will worsened psychosis 3. d/c vraylar- pt worried that palpitation will worsen although suspect these are not related to antipsychotic use but independent of. WIll continue to monitor- palpitations, chest pain, may need to follow up with EKG 4. Start risperidone 1mg po BID 5. Obtain collateral information 6. Aftercare planning 05/24/23 Continue above treatment plan Patient educated on: medication risk/benefits and therapeutic strategies Informed Consent: understands and further education needed Reason for continued inpatient stay Substantial Risk for: harm to self, inability to function and rapid decompensation Time Spent With Patient Time: Total time managing care of this patient today ____ minutes.
[2023-05-24 21:25] VITALS: BP 139/78; PULSE 82; TEMP 36.3
[2023-05-24] MEDS: traZODone HCL 50 MG TABLET PO (21:27)
[2023-05-24] MEDS: Acetaminophen 325 MG TABLET 650 MG PO (22:01)
[2023-05-25 08:15] VITALS: BP 126/80; PULSE 93; RESP 18; TEMP 36.1; O2SAT 96
[2023-05-25] MEDS: Atorvastatin Calcium 40 MG TABLET PO (08:16)
[2023-05-25] MEDS: atenoloL 25 MG TABLET PO (08:16)
[2023-05-25] MEDS: lisinopriL 5 MG TABLET PO (08:16)
[2023-05-25] MEDS: risperiDONE 1 MG TABLET PO ×2 (08:17→21:37)
--- NOTE | 2023-05-25 10:28 | HO.PSYCHPN ---
Subjective Subjective Date of Service: 05/25/23 Reason For Visit: psychosis Interim History: pt reports no problems with risperdal; presenting more organized; she is oriented to person, self, situation. she is less confused and delusional; no sedation no dizziness no restlessness. more visible on unit Medication Compliance: Yes Side effects from medications: No Attending Groups: Intermittent Review of Systems Acute medical concerns: No Medical Review of Systems: unchanged Review of Systems Review of Systems Pt denies chest pain but reports palpitation. She denies diarrhea, loose stools or constipation She denies BEARD. No SOB. No cough. Yes Unobtainable due to mental condition Mental Status Exam Mental Status Exam Narrative: Appearance:casually groomed, fair hygiene, in NAD behavior:cooperative Psychomotor:no agitation or retardation noted Speech:clear, TP:somewhat tangential- based on associate director finance translation TC:worried that because a spell someone trying to harm her and explaining palpitations (which are not new and she used to be on metoprolol as part of a spell) Mood: anxious Affect:fearful SI:none HI:none VH/AH:hearing voices of angels Delusions:paranoid delusions Insight/judgment:fair x 2. memory/cog: alert, oriented x 3. Diagnostics Vital Signs (24Hr): Vital Signs - 24 hr 05/24/23 21:25 05/25/23 08:15 Temperature 97.3 F 97.0 F Pulse Rate 82 93 Respiratory Rate 18 Blood Pressure 139/78 126/80 Pulse Oximetry 96 Oxygen Delivery Method Room Air BMI result Body Mass Index 35.0 Labs 05/21/23 17:56 05/23/23 07:52 Medications Medications Current Medications Acetaminophen (Acetaminophen 325 Mg Tablet) 650 mg PO Q6H PRN PRN Reason: Headache/Pain Mild Scale (1-3) Last Admin: 05/24/23 22:01 Dose: 650 mg Al Hydroxide/Mg Hydroxide (Magnesium Hydrox/Alum Hydrox 30 Ml Oral.Susp) 30 ml PO Q6H PRN PRN Reason: Heartburn/Nausea Atenolol (Atenolol 25 Mg Tablet) 25 mg PO DAILY [facility]; Protocol Last Admin: 05/25/23 08:16 Dose: 25 mg Atorvastatin Calcium (Atorvastatin Calcium 40 Mg Tablet) 40 mg PO DAILY [facility] Last Admin: 05/25/23 08:16 Dose: 40 mg Hydroxyzine HCl (Hydroxyzine Hcl 25 Mg Tablet) 25 mg PO Q6H PRN PRN Reason: Anxiety Last Admin: 05/23/23 21:13 Dose: 25 mg Lisinopril (Lisinopril 5 Mg Tablet) 5 mg PO DAILY [facility]; Protocol Last Admin: 05/25/23 08:16 Dose: 5 mg Magnesium Hydroxide (Milk Of Magnesia 30 Ml Oral.Susp) 30 ml PO DAILY PRN PRN Reason: Constipation Last Admin: 05/24/23 12:22 Dose: 30 ml Risperidone (Risperidone 1 Mg Tablet) 1 mg PO BID [facility] Last Admin: 05/25/23 08:17 Dose: 1 mg Trazodone HCl (Trazodone Hcl 50 Mg Tablet) 50 mg PO BEDTIME PRN PRN Reason: insomnia Last Admin: 05/24/23 21:27 Dose: 50 mg Allergies Allergies Allergy/AdvReac Type Severity Reaction Status Date / Time povidone-iodine [Betadine] Allergy Unknown discomfort, Verified 01/02/23 09:55 no swelling or pain soap [Betadine] Allergy Unknown discomfort, Verified 01/02/23 09:55 no swelling or pain Assessment & Plan Assessment & Plan (1) Bipolar disorder with psychotic features: Status: Acute Code(s): F31.9 - Bipolar disorder, unspecified Plan Mrs. Hanna is a 52 year-old woman with hx of Bipolar Disorder who was brought to [facility] after being assessed by [facility] in the community due to increase paranoia, psychosis, lack of sleep. Utox is negative. Pt noted to have tachycardia. EKG completed, QTc 469, tachycardia. No ST changes. Pt used to be on beta-alex, will start atenolol 25mg po daily. We discussed risks, benefits and alternative treatment options. She has been on risperidone in the past with good effect. Will restart but will monitor orthostatic HOTN, Parkinsonism/tremors or cogwheelm. PLAN 1. Admit to M5, CV, 15 minutes checks for safety 2. D/c lexapro- will worsened psychosis 3. d/c vraylar- pt worried that palpitation will worsen although suspect these are not related to antipsychotic use but independent of. WIll continue to monitor- palpitations, chest pain, may need to follow up with EKG 4. Start risperidone 1mg po BID 5. Obtain collateral information 6. Aftercare planning 10/14/23 Continue above treatment plan 05/25/23 continue current treatment plan Patient educated on: therapeutic strategies Informed Consent: further education needed Reason for continued inpatient stay Substantial Risk for: harm to self, inability to function and rapid decompensation Time Spent With Patient Time: Total time managing care of this patient today ____ minutes.
[2023-05-25 20:25] VITALS: BP 132/71; PULSE 75; TEMP 36.1
[2023-05-25] MEDS: traZODone HCL 50 MG TABLET PO (21:37)
[2023-05-26 07:05] VITALS: BP 108/53; PULSE 81; RESP 16; TEMP 35.8; O2SAT 96
[2023-05-26] MEDS: atenoloL 25 MG TABLET PO (08:27)
[2023-05-26] MEDS: Atorvastatin Calcium 40 MG TABLET PO (08:27)
[2023-05-26] MEDS: risperiDONE 1 MG TABLET PO ×2 (08:27→21:22)
[2023-05-26] MEDS: lisinopriL 5 MG TABLET PO (08:27)
--- NOTE | 2023-05-26 08:48 | HO.PSYCHPN ---
Subjective Subjective Date of Service: 05/26/23 Reason For Visit: psychosis Interim History: Pt presents as calmer, less paranoid delusions. She denies SI/HI. She continues to ruminate as to who may have been person who put the spell and worried that his family does not believe her. She reports sleeping and eating well. She reports less AH. She has been visible on the unit. She has attended some groups. SBP lower today. She denies dizziness. Encouraged to drink fluids- will continue to monitor BP.No signs of aggression towards self or others. Review of Systems Review of Systems Pt denies chest pain but reports palpitation. She denies diarrhea, loose stools or constipation She denies BEARD. No SOB. No cough. Yes Unobtainable due to mental condition Mental Status Exam Mental Status Exam Narrative: Appearance:casually groomed, fair hygiene, in NAD behavior:cooperative Psychomotor:no agitation or retardation noted Speech:clear, TP:somewhat tangential- based on instructor traffic safety translation TC:worried that because a spell someone trying to harm her and explaining palpitations (which are not new and she used to be on metoprolol as part of a spell) Mood: anxious Affect:fearful SI:none HI:none VH/AH:hearing voices of angels Delusions:paranoid delusions Insight/judgment:fair x 2. memory/cog: alert, oriented x 3. Diagnostics Vital Signs (24Hr): Vital Signs - 24 hr 05/25/23 20:25 05/26/23 07:05 Temperature 97.0 F 96.4 F L Pulse Rate 75 81 Respiratory Rate 16 Blood Pressure 132/71 108/53 L Pulse Oximetry 96 Oxygen Delivery Method Room Air BMI result Body Mass Index 35.0 Labs 05/21/23 17:56 05/23/23 07:52 Medications Medications Current Medications Acetaminophen (Acetaminophen 325 Mg Tablet) 650 mg PO Q6H PRN PRN Reason: Headache/Pain Mild Scale (1-3) Last Admin: 05/24/23 22:01 Dose: 650 mg Al Hydroxide/Mg Hydroxide (Magnesium Hydrox/Alum Hydrox 30 Ml Oral.Susp) 30 ml PO Q6H PRN PRN Reason: Heartburn/Nausea Atenolol (Atenolol 25 Mg Tablet) 25 mg PO DAILY [facility]; Protocol Last Admin: 05/26/23 08:27 Dose: 25 mg Atorvastatin Calcium (Atorvastatin Calcium 40 Mg Tablet) 40 mg PO DAILY [facility] Last Admin: 05/26/23 08:27 Dose: 40 mg Hydroxyzine HCl (Hydroxyzine Hcl 25 Mg Tablet) 25 mg PO Q6H PRN PRN Reason: Anxiety Last Admin: 05/23/23 21:13 Dose: 25 mg Lisinopril (Lisinopril 5 Mg Tablet) 5 mg PO DAILY [facility]; Protocol Last Admin: 05/26/23 08:27 Dose: 5 mg Magnesium Hydroxide (Milk Of Magnesia 30 Ml Oral.Susp) 30 ml PO DAILY PRN PRN Reason: Constipation Last Admin: 05/24/23 12:22 Dose: 30 ml Risperidone (Risperidone 1 Mg Tablet) 1 mg PO BID [facility] Last Admin: 05/26/23 08:27 Dose: 1 mg Trazodone HCl (Trazodone Hcl 50 Mg Tablet) 50 mg PO BEDTIME PRN PRN Reason: insomnia Last Admin: 05/25/23 21:37 Dose: 50 mg Allergies Allergies Allergy/AdvReac Type Severity Reaction Status Date / Time povidone-iodine [Betadine] Allergy Unknown discomfort, Verified 01/02/23 09:55 no swelling or pain soap [Betadine] Allergy Unknown discomfort, Verified 01/02/23 09:55 no swelling or pain Assessment & Plan Assessment & Plan (1) Bipolar disorder with psychotic features: Status: Acute Code(s): F31.9 - Bipolar disorder, unspecified Plan Mrs. Hanna is a 52 year-old woman with hx of Bipolar Disorder who was brought to [facility] after being assessed by [facility] in the community due to increase paranoia, psychosis, lack of sleep. Utox is negative. Pt noted to have tachycardia. EKG completed, QTc 469, tachycardia. No ST changes. Pt used to be on beta-alex, will start atenolol 25mg po daily. We discussed risks, benefits and alternative treatment options. She has been on risperidone in the past with good effect. Will restart but will monitor orthostatic HOTN, Parkinsonism/tremors or cogwheelm. PLAN 1. Admit to , CV, 15 minutes checks for safety 05/26- continue current medications risperidone 1mg po BID and atenolol 25mg po daily. monitor HOTN, ortho HOTN. Reason for continued inpatient stay Substantial Risk for: inability to function Time Spent With Patient Time: Total time managing care of this patient today ____ minutes.
[2023-05-26 16:20] VITALS: BP 126/69; PULSE 78; RESP 16; TEMP 36.2; O2SAT 97
[2023-05-27] MEDS: hydrOXYzine HCL 25 MG TABLET PO (03:25)
[2023-05-27 07:35] VITALS: BP 141/84; PULSE 88; RESP 18; TEMP 36; O2SAT 97
[2023-05-27] MEDS: risperiDONE 1 MG TABLET PO ×2 (08:33→21:18)
[2023-05-27] MEDS: atenoloL 25 MG TABLET PO (08:33)
[2023-05-27] MEDS: lisinopriL 5 MG TABLET PO (08:33)
[2023-05-27] MEDS: Atorvastatin Calcium 40 MG TABLET PO (08:33)
--- NOTE | 2023-05-27 08:50 | P.PNPSI_ITS ---
Subjective Subjective Date of Service: 05/27/23 Reason For Visit: psychosis Subjective Notes: Conditional Voluntary Interim History: Pt reports feeling better, calmer. Less hypervigilant and fearful behaviors related to paranoid delusions. She denies SI/HI. She reports she sleeping better but wakes up early. She reports trazodone makes her groggy next day. She also reports swelling of both legs- mild edema with some pitting more on right side. No pain. No SI/HI. Some zoroastrianism preoccupation in relation to the spell she still believes happened to her and reason for someone going after her. Medication Compliance: Yes Side effects from medications: Yes (edema with atenolol) Review of Systems Review of Systems Pt denies chest pain but reports palpitation. She denies diarrhea, loose stools or constipation She denies BEARD. No SOB. No cough. Yes Unobtainable due to mental condition Mental Status Exam Mental Status Exam Narrative: Appearance:casually groomed, fair hygiene, in NAD behavior:cooperative Psychomotor:no agitation or retardation noted Speech:clear, TP:more linear and coherent TC:less paranoid delusions Mood: calmer Affect:congruent SI:none HI:none VH/AH:less hearing voices of angels Delusions:less paranoid delusions Insight/judgment:fair x 2. memory/cog: alert, oriented x 3. Diagnostics Vital Signs (24Hr): Vital Signs - 24 hr 05/26/23 16:20 Temperature 97.2 F Pulse Rate 78 Respiratory Rate 16 Blood Pressure 126/69 Pulse Oximetry 97 Oxygen Delivery Method Room Air BMI result Body Mass Index 35.0 Labs 05/21/23 17:56 05/23/23 07:52 Medications Medications Current Medications Acetaminophen (Acetaminophen 325 Mg Tablet) 650 mg PO Q6H PRN PRN Reason: Headache/Pain Mild Scale (1-3) Last Admin: 05/24/23 22:01 Dose: 650 mg Al Hydroxide/Mg Hydroxide (Magnesium Hydrox/Alum Hydrox 30 Ml Oral.Susp) 30 ml PO Q6H PRN PRN Reason: Heartburn/Nausea Atorvastatin Calcium (Atorvastatin Calcium 40 Mg Tablet) 40 mg PO DAILY [facility] Last Admin: 05/27/23 08:33 Dose: 40 mg Clonazepam (Clonazepam 0.5 Mg Tablet) 0.5 mg PO ONCE ONE Stop: 05/27/23 08:48 Hydroxyzine HCl (Hydroxyzine Hcl 25 Mg Tablet) 25 mg PO Q6H PRN PRN Reason: Anxiety Last Admin: 05/27/23 03:25 Dose: 25 mg Lisinopril (Lisinopril 5 Mg Tablet) 5 mg PO DAILY [facility]; Protocol Last Admin: 05/27/23 08:33 Dose: 5 mg Magnesium Hydroxide (Milk Of Magnesia 30 Ml Oral.Susp) 30 ml PO DAILY PRN PRN Reason: Constipation Last Admin: 05/24/23 12:22 Dose: 30 ml Metoprolol Succinate (Metoprolol Succinate Er 12.5 Mg Halftab.Er.24h) 12.5 mg PO DAILY [facility]; Protocol Risperidone (Risperidone 1 Mg Tablet) 1 mg PO BID [facility] Last Admin: 05/27/23 08:33 Dose: 1 mg Allergies Allergies Allergy/AdvReac Type Severity Reaction Status Date / Time povidone-iodine [Betadine] Allergy Unknown discomfort, Verified 01/02/23 09:55 no swelling or pain soap [Betadine] Allergy Unknown discomfort, Verified 01/02/23 09:55 no swelling or pain Assessment & Plan Assessment & Plan (1) Bipolar disorder with psychotic features: Status: Acute Code(s): F31.9 - Bipolar disorder, unspecified Plan Mrs. Hanna is a 52 year-old woman with hx of Bipolar Disorder who was brought to [facility] after being assessed by [facility] in the community due to increase paranoia, psychosis, lack of sleep. Utox is negative. Pt noted to have tachycardia. EKG completed, QTc 469, tachycardia. No ST changes. Pt used to be on beta-alex, will start atenolol 25mg po daily. We discussed risks, benefits and alternative treatment options. She has been on risperidone in the past with good effect. Will restart but will monitor orthostatic HOTN, Parkinsonism/tremors or cogwheelm. PLAN 1. Admit to M5, CV, 15 minutes checks for safety 05/26- continue current medications risperidone 1mg po BID and atenolol 25mg po daily. monitor HOTN, ortho HOTN. 05/27- switch atenolol to metoprolol due to leg edema. Pt has also been on metoprolol before. Continue risperidone- no side effects with this medication. Add melatonin for sleep scheduled 6mg po qhs. dc trazodone as pt reports feeling too sleepy next day whe she takes it. Added prn clonazepam 0.5mg po daily. more stable. pending collaterla infor from . Reason for continued inpatient stay Substantial Risk for: inability to function Time Spent With Patient Time: Total time managing care of this patient today ____ minutes.
[2023-05-27] MEDS: clonazePAM 0.5 MG TABLET PO (10:45)
[2023-05-27] MEDS: Metoprolol Succinate ER 12.5 MG HALFTAB.ER.24H PO (10:45)
[2023-05-27 18:00] VITALS: BP 102/61; PULSE 81; RESP 16; TEMP 36.2; O2SAT 99
[2023-05-27] MEDS: Melatonin 3 MG TABLET 6 MG PO (21:18)
[2023-05-28] MEDS: Atorvastatin Calcium 40 MG TABLET PO (09:13)
[2023-05-28] MEDS: lisinopriL 5 MG TABLET PO (09:13)
[2023-05-28] MEDS: risperiDONE 1 MG TABLET PO ×2 (09:13→21:01)
[2023-05-28] MEDS: Metoprolol Succinate ER 12.5 MG HALFTAB.ER.24H PO (09:14)
[2023-05-28 09:18] VITALS: BP 129/75; PULSE 86; RESP 18; TEMP 35.6; O2SAT 98
--- NOTE | 2023-05-28 10:38 | HO.PSYCHPN ---
Subjective Subjective Date of Service: 05/28/23 Reason For Visit: psychosis Subjective Notes: Conditional Voluntary Interim History: Pt reports feeling better, calmer. Pt reports less fear related to feeling like someone had cast spell on her. She reports less voices of angels but still some sabianist preoccupation. She appears less paranoid. She is in agreement to continue medications. She denies SI/HI. Collateral information gathered from her OP psych provider LIZZY Sandoval- given update. Review of Systems Review of Systems Pt denies chest pain but reports palpitation. She denies diarrhea, loose stools or constipation She denies BEARD. No SOB. No cough. Yes Unobtainable due to mental condition Mental Status Exam Mental Status Exam Narrative: Appearance:casually groomed, fair hygiene, in NAD behavior:cooperative Psychomotor:no agitation or retardation noted Speech:clear, TP:more linear and coherent TC:less paranoid delusions Mood: calmer Affect:congruent SI:none HI:none VH/AH:less hearing voices of angels Delusions:less paranoid delusions Insight/judgment:fair x 2. memory/cog: alert, oriented x 3. Diagnostics Vital Signs (24Hr): Vital Signs - 24 hr 05/27/23 18:00 05/28/23 09:18 Temperature 97.2 F 96.1 F L Pulse Rate 81 86 Respiratory Rate 16 18 Blood Pressure 102/61 129/75 Pulse Oximetry 99 98 Oxygen Delivery Method Room Air Room Air BMI result Body Mass Index 35.0 Labs 05/21/23 17:56 05/23/23 07:52 Medications Medications Current Medications Acetaminophen (Acetaminophen 325 Mg Tablet) 650 mg PO Q6H PRN PRN Reason: Headache/Pain Mild Scale (1-3) Last Admin: 05/24/23 22:01 Dose: 650 mg Al Hydroxide/Mg Hydroxide (Magnesium Hydrox/Alum Hydrox 30 Ml Oral.Susp) 30 ml PO Q6H PRN PRN Reason: Heartburn/Nausea Atorvastatin Calcium (Atorvastatin Calcium 40 Mg Tablet) 40 mg PO DAILY [facility] Last Admin: 05/28/23 09:13 Dose: 40 mg Clonazepam (Clonazepam 0.5 Mg Tablet) 0.5 mg PO DAILY PRN PRN Reason: Anxiety Hydroxyzine HCl (Hydroxyzine Hcl 25 Mg Tablet) 25 mg PO Q6H PRN PRN Reason: Anxiety Last Admin: 05/27/23 03:25 Dose: 25 mg Lisinopril (Lisinopril 5 Mg Tablet) 5 mg PO DAILY [facility]; Protocol Last Admin: 05/28/23 09:13 Dose: 5 mg Magnesium Hydroxide (Milk Of Magnesia 30 Ml Oral.Susp) 30 ml PO DAILY PRN PRN Reason: Constipation Last Admin: 05/24/23 12:22 Dose: 30 ml Melatonin (Melatonin 3 Mg Tablet) 6 mg PO BEDTIME [facility] Last Admin: 05/27/23 21:18 Dose: 6 mg Metoprolol Succinate (Metoprolol Succinate Er 12.5 Mg Halftab.Er.24h) 12.5 mg PO DAILY [facility]; Protocol Last Admin: 05/28/23 09:14 Dose: 12.5 mg Risperidone (Risperidone 1 Mg Tablet) 1 mg PO BID [facility] Last Admin: 05/28/23 09:13 Dose: 1 mg Allergies Allergies Allergy/AdvReac Type Severity Reaction Status Date / Time povidone-iodine [Betadine] Allergy Unknown discomfort, Verified 01/02/23 09:55 no swelling or pain soap [Betadine] Allergy Unknown discomfort, Verified 01/02/23 09:55 no swelling or pain Assessment & Plan Assessment & Plan (1) Bipolar disorder with psychotic features: Status: Acute Code(s): F31.9 - Bipolar disorder, unspecified Plan Mrs. Hanna is a 52 year-old woman with hx of Bipolar Disorder who was brought to [facility] after being assessed by [facility] in the community due to increase paranoia, psychosis, lack of sleep. Utox is negative. Pt noted to have tachycardia. EKG completed, QTc 469, tachycardia. No ST changes. Pt used to be on beta-alex, will start atenolol 25mg po daily. We discussed risks, benefits and alternative treatment options. She has been on risperidone in the past with good effect. Will restart but will monitor orthostatic HOTN, Parkinsonism/tremors or cogwheelm. PLAN 1. Admit to M5, CV, 15 minutes checks for safety 05/26- continue current medications risperidone 1mg po BID and atenolol 25mg po daily. monitor HOTN, ortho HOTN. 05/27- switch atenolol to metoprolol due to leg edema. Pt has also been on metoprolol before. Continue risperidone- no side effects with this medication. Add melatonin for sleep scheduled 6mg po qhs. dc trazodone as pt reports feeling too sleepy next day when she takes it. Added prn clonazepam 0.5mg po daily. more stable. pending collateral information from . 05/28 continue tx. Reason for continued inpatient stay Substantial Risk for: inability to function Time Spent With Patient Time: Total time managing care of this patient today ____ minutes.
[2023-05-28 18:00] VITALS: BP 125/74; PULSE 88; RESP 16; TEMP 35.7
[2023-05-28] MEDS: Melatonin 3 MG TABLET 6 MG PO (21:00)
[2023-05-29] MEDS: Metoprolol Succinate ER 12.5 MG HALFTAB.ER.24H PO (08:38)
[2023-05-29] MEDS: risperiDONE 1 MG TABLET PO ×2 (08:39→20:58)
[2023-05-29] MEDS: lisinopriL 5 MG TABLET PO (08:39)
[2023-05-29] MEDS: Atorvastatin Calcium 40 MG TABLET PO (08:39)
[2023-05-29 08:45] VITALS: BP 126/83; PULSE 97; RESP 18; TEMP 35.9; O2SAT 97
[2023-05-29 08:46] VITALS: BMI 30.9
--- NOTE | 2023-05-29 16:04 | P.PNPSI_ITS ---
Subjective Subjective Date of Service: 05/29/23 Reason For Visit: psychosis Subjective Notes: Conditional Voluntary Interim History: Pt reports feeling better, calmer. Pt does report feeling dizzy when standing up. She does have ortho HOTN SBP drops about 20 points when standing. She denies SI/HI. Much less paranoid. Medication Compliance: Yes Side effects from medications: No Review of Systems Review of Systems Pt denies chest pain but reports palpitation. She denies diarrhea, loose stools or constipation She denies BEARD. No SOB. No cough. Yes Unobtainable due to mental condition Mental Status Exam Mental Status Exam Narrative: Appearance:casually groomed, fair hygiene, in NAD behavior:cooperative Psychomotor:no agitation or retardation noted Speech:clear, TP:more linear and coherent TC:less paranoid delusions Mood: calmer Affect:congruent SI:none HI:none VH/AH:less hearing voices of angels Delusions:less paranoid delusions Insight/judgment:fair x 2. memory/cog: alert, oriented x 3. Diagnostics Vital Signs (24Hr): Vital Signs - 24 hr 05/28/23 18:00 05/29/23 08:45 Temperature 96.2 F L 96.7 F L Pulse Rate 88 97 Respiratory Rate 16 18 Blood Pressure 125/74 126/83 Pulse Oximetry 97 Oxygen Delivery Method Room Air Room Air Oxygen Flow Rate 97 BMI result Body Mass Index 30.9 Labs 05/21/23 17:56 05/23/23 07:52 Medications Medications Current Medications Acetaminophen (Acetaminophen 325 Mg Tablet) 650 mg PO Q6H PRN PRN Reason: Headache/Pain Mild Scale (1-3) Last Admin: 05/24/23 22:01 Dose: 650 mg Al Hydroxide/Mg Hydroxide (Magnesium Hydrox/Alum Hydrox 30 Ml Oral.Susp) 30 ml PO Q6H PRN PRN Reason: Heartburn/Nausea Atorvastatin Calcium (Atorvastatin Calcium 40 Mg Tablet) 40 mg PO DAILY [facility] Last Admin: 05/29/23 08:39 Dose: 40 mg Clonazepam (Clonazepam 0.5 Mg Tablet) 0.5 mg PO DAILY PRN PRN Reason: Anxiety Hydroxyzine HCl (Hydroxyzine Hcl 25 Mg Tablet) 25 mg PO Q6H PRN PRN Reason: Anxiety Last Admin: 05/27/23 03:25 Dose: 25 mg Lisinopril (Lisinopril 5 Mg Tablet) 5 mg PO DAILY [facility]; Protocol Last Admin: 05/29/23 08:39 Dose: 5 mg Magnesium Hydroxide (Milk Of Magnesia 30 Ml Oral.Susp) 30 ml PO DAILY PRN PRN Reason: Constipation Last Admin: 05/24/23 12:22 Dose: 30 ml Melatonin (Melatonin 3 Mg Tablet) 6 mg PO BEDTIME [facility] Last Admin: 05/28/23 21:00 Dose: 6 mg Metoprolol Succinate (Metoprolol Succinate Er 12.5 Mg Halftab.Er.24h) 12.5 mg PO DAILY [facility]; Protocol Last Admin: 05/29/23 08:38 Dose: 12.5 mg Risperidone (Risperidone 1 Mg Tablet) 1 mg PO BID [facility] Last Admin: 05/29/23 08:39 Dose: 1 mg Allergies Allergies Allergy/AdvReac Type Severity Reaction Status Date / Time povidone-iodine [Betadine] Allergy Unknown discomfort, Verified 01/02/23 09:55 no swelling or pain soap [Betadine] Allergy Unknown discomfort, Verified 01/02/23 09:55 no swelling or pain Assessment & Plan Assessment & Plan (1) Bipolar disorder with psychotic features: Status: Acute Code(s): F31.9 - Bipolar disorder, unspecified Plan Mrs. Hanna is a 52 year-old woman with hx of Bipolar Disorder who was brought to [facility] ED after being assessed by [facility] in the community due to increase paranoia, psychosis, lack of sleep. Utox is negative. Pt noted to have tachycardia. EKG completed, QTc 469, tachycardia. No ST changes. Pt used to be on beta-alex, will start atenolol 25mg po daily. We discussed risks, benefits and alternative treatment options. She has been on risperidone in the past with good effect. Will restart but will monitor orthostatic HOTN, Parkinsonism/tremors or cogwheelm. PLAN 1. Admit to M5, CV, 15 minutes checks for safety 05/26- continue current medications risperidone 1mg po BID and atenolol 25mg po daily. monitor HOTN, ortho HOTN. 05/27- switch atenolol to metoprolol due to leg edema. Pt has also been on metoprolol before. Continue risperidone- no side effects with this medication. Add melatonin for sleep scheduled 6mg po qhs. dc trazodone as pt reports feeling too sleepy next day when she takes it. Added prn clonazepam 0.5mg po daily. more stable. pending collateral information from . 05/28 continue tx. 05/29 continue tx. may lower risperidone 1mg po qhs. Reason for continued inpatient stay Substantial Risk for: inability to function Time Spent With Patient Time: Total time managing care of this patient today ____ minutes.
[2023-05-29 18:00] VITALS: BP 139/90; PULSE 87; TEMP 36.3; O2SAT 100
[2023-05-29] MEDS: Melatonin 3 MG TABLET 6 MG PO (20:58)
[2023-05-30 08:00] VITALS: BP 136/72; PULSE 68; RESP 16; TEMP 36.7; O2SAT 96
[2023-05-30] MEDS: risperiDONE 1 MG TABLET PO (08:33)
[2023-05-30] MEDS: Metoprolol Succinate ER 12.5 MG HALFTAB.ER.24H PO (08:33)
[2023-05-30] MEDS: lisinopriL 5 MG TABLET PO (08:33)
[2023-05-30] MEDS: Atorvastatin Calcium 40 MG TABLET PO (08:33)
[2023-05-30 10:30] VITALS: BP 133/69; PULSE 101; RESP 16
--- NOTE | 2023-05-30 11:30 | P.DS_ITS ---
DS: Providers Provider Date of Service: 05/30/23 Date of admission: 05/22/23 18:44 Primary care physician: Unknown Physician DS: Diagnosis Discharge Diagnosis (1) Bipolar disorder with psychotic features: Status: Acute DS: Medications Discharge Medications Home Medications: Previous Rx's Medication Instructions Recorded rosuvastatin 10 mg tablet (Crestor) 10 mg PO DAILY #90 tabs 07/09/22 lisinopril 5 mg tablet 5 mg PO DAILY #90 tabs 05/20/23 risperidone 1 mg tablet 1 mg PO BEDTIME #30 tabs 05/30/23 Mental Status Exam Mental Status Exam Narrative: Appearance:casually groomed, fair hygiene, in NAD behavior:cooperative Psychomotor:no agitation or retardation noted Speech:clear, TP:more linear and coherent TC:less paranoid delusions Mood: calmer Affect:congruent SI:none HI:none VH/AH:less hearing voices of angels Delusions:less paranoid delusions Insight/judgment:fair x 2. memory/cog: alert, oriented x 3. DS: Summary Hospital Course Hospital Course: [a Subjective Notes: Michel Warning (given and shows understanding) and Conditional Voluntary Narrative: Mrs. Hanna is a 52 year-old woman with hx of Bipolar Disorder who was assessed in the community by [facility] due to pt presenting as not sleeping, more paranoid after having encounter with person at work. Pt has been taking less often antipsychotic vraylar as pt reports palpitations. Note that in the ED, her HR has been in 150's and in the past she has been on metoprolol. In the ED, pt presented as agitated, kneeling and at times putting her self on the floor. She reported feeling worried that someone is trying to hurt her. Her utox is negative. On the unit, pt seen with [place] occasional caregiver. Pt initially guarded, but later more forthcoming about extend of delusional content. Pt believes that a seamstress in [place] cast a spell on her when she was a child. She reports lately she is worried that because of the spell someone is trying to hurt her. She reports she feels palpitations are due to spell. She reports at first someone insert energy to her and later someone is taking energy from me. She denies SI/HI. She reports she wants to help people, not hurt them. She reports poor sleep. She reports reason for not taking vraylar daily is because pal pitation and her prescriber suggesting taking it only 3 times a week a dose of 1.5mg po. Past Psychiatric History: Inpatient: about 4 previous inpatient admission. Last one was 03/2020 M5 OP: LIZZY Sandoval Past trials: risperidone, olanzapine, vraylar Medical Evaluation Reviewed: Yes HOSPITAL COURSE On the unit, pt was admitted on a CV and placed on 15 minutes checks for safety. Pt presented as paranoid, thinking someone had cast spell. She was religiously preoccupied. We discussed risks, benefits and alternative treatment options. Pt reported palpitations with vraylar, although pt has hx of tachycardia, used to be on beta alex not recently. She agreed to restart risperidone as she had been on this medication with good effect. Her affect gradually presented as much less paranoid and less VH/AH. She was more visible on the unit and more aware of her surroundings. She continued to believe that although no one was after her on the unit, it was due to cast someone did to her back in [place]. She denied SI/HI. She did not show any signs of aggression towards self or others. She was started on metoprolol for tachycardia. She was noted to have orthostatic HOTN with risperidone which was lowered from 1mg po BID to 1mg po qhs. Pt agreed to continued medications. Collateral information was gathered from her outpatient provider- Janelle Sandoval. Family was in agreement that pt appeared in much improved conditions. Status at Discharge Cognitive/behavioral status at discharge: Pt with brighter, non labile affect. Less paranoia. No overt VH/AH. Pt sleeping most of the time but waking up early in the morning. No SI/HI. no aggression towards self or others. Functional status at discharge: independent ambulation Overall status at discharge: patient is progressing back to baseline Time Spent with Patient Time attestation: Total time managing care of this patient today ____ minutes. Time spent: Greater than 30 minutes Discharge Plan Discharge Anticipated Discharge Date/Time: 05/30/23 11:18 Patient Disposition: Home, Self-Care Discharge Diagnosis: Bipolar type 1 Disorder Referrals: [facility]: Janelle Sandoval (psychiatry) [Other] - 06/24/23 11:00 am (Hospital Discharge appointment with psychiatric medication provider Appointment is in person at [facility] in [place], [place].) INNA Resendiz (therapist): [facility] [Other] - 06/04/23 1:00 pm (Hospital Discharge appointment with outpatient therapist Appointment is by tele-health.) Selma Payton MD [Physician] - 06/12/23 1:30 pm (in office) Discharge Medications: New risperidone 1 mg Tablet 1 mg PO BEDTIME Qty: 30 0RF Continued rosuvastatin [Crestor] 10 mg tablet 10 mg PO DAILY Qty: 90 3RF lisinopril 5 mg tablet 5 mg PO DAILY Qty: 90 3RF Discontinued trazodone 50 mg tablet 50 mg PO BEDTIME PRN (Reason: insomnia) Vraylar 1.5 mg capsule 1.5 mg PO Q OTHER DAY escitalopram oxalate 10 mg tablet 15 mg PO DAILY Discharge Orders: Discharge Order (Routine); Ordered 05/30/23 Ordered By: Annabel Mejia Diet: Regular diet Activity on Discharge: As tolerated Stand Alone Forms: Patient Portal Discharge page, Community Support Care Plan Goals: 1. Maintain mood 2. No SI/HI 3. Less VH/AH 4. Less paranoia and mandaeism preoccupation 5. No aggression towards self or others Health Concerns: Follow up with PCP Plan of Treatment: 1. Take medications as prescribed 2. Go to nearest ED or call 911 in event of emergency Assessment: Pt with brighter, non labile affect. Less paranoid ideas. Less VH/AH. Pt sleeping through the night. Discharge Date/Time: 05/30/23 16:30
== END 2023-05-30 16:30 | disposition home or self-care (01) | DRG 753 ==
LOC: HO.ED 20:13 → HO.PM5 05-22 18:49
PROVIDERS: Emergency Medicine; Admitting Provider Psychiatry & Neurology Psychiatry; Emergency Provider Emergency Medicine; Visit Provider Social Worker
DX: F31.9 Bipolar disorder, unspecified (principal); E78.5 Hyperlipidemia, unspecified; Z20.822 Contact with and (suspected) exposure to COVID-19; Z79.899 Other long term (current) drug therapy
CPT/HCPCS: 36415; 80053; 80061; 80143; 80179; 80307; 81001; 81025; 85025; 87635; 93005; 99285; J1200; J2060

== ENCOUNTER → 2023-05-22 18:44 | Outpatient (BNV) | payer BC, SELFPAY | PROVIDERS: Admitting Provider Psychiatry & Neurology Psychiatry; Emergency Provider Emergency Medicine; Visit Provider Clinical Nurse Specialist Psychiatric/Mental Health | DX: F31.13 Bipolar disorder, current episode manic without psychotic features, severe (principal) | CPT/HCPCS: 90792; 99231; 99232; 99239 ==

== ENCOUNTER 2023-06-09 08:45 | Outpatient (REF) | payer BC, SELFPAY ==
[2023-06-09 12:03] LABS: MANUAL DIFF FLAG NO
[2023-06-09 12:14] LABS: Basophils Percent Auto 0.6 % (0-2); Eosinophils Absolute Auto 0.4 X10*3/uL (0.0-0.4); Eosinophils Percent Auto 4.9 % (0-4); Hematocrit 40.9 % (37.0-47.0); Hemoglobin 13.8 g/dl (12.0-16.0); Imm Gran Abs Auto 0.02 X10*3/uL (0.00-0.03); Imm Gran Pct Auto 0.3 % (0.0-0.4); Lymphocytes Absolute Auto 2.4 X10*3/uL (1.2-4.9); Mean Corpuscular HGB Conc 33.7 g/dl (31.0-35.0); Mean Corpuscular Hemoglobin 29.7 pg (27.0-33.0); Mean Platelet Volume 9.9 fL (9.4-12.3); Monocytes Absolute Auto 0.6 X10*3/uL (0.1-1.2); Monocytes Percent Auto 8.8 % (2-11); Neutrophils Absolute Auto 3.7 x10*3/uL (2.0-8.3); Neutrophils Percent Auto 51.4 % (45-73); Platelet Count 307 X10*3/uL (160-400); Red Blood Count 4.65 X10*6/uL (4.20-5.50); Red Cell Distribution Width 13.2 % (11.0-16.0); White Blood Count 7.1 X10*3/uL (4.8-10.8)
[2023-06-09 12:43] LABS: Alanine Aminotransferase 72 U/L (0-31); Albumin Level 4.3 g/dL (3.5-5.0); Alkaline Phosphatase 73 U/L (39-117); Anion Gap 14 (12-20); Aspartate Amino Transferase 37 U/L (5-31); Bilirubin Total 0.5 mg/dL (0.0-1.0); Blood Urea Nitrogen 12 mg/dL (9-16); Calcium 9.2 mg/dL (8.4-10.2); Carbon Dioxide 23 mmol/L (22-29); Chloride 107 mmol/L (96-108); Cholesterol 171 mg/dL (<200); Estimated Glomerular Filt Rate > 60; Glucose Fasting 108 mg/dL (60-99); HDL Cholesterol 44 mg/dL (>40); LDL Cholesterol Calculated 95 mg/dL (<100); Potassium 3.9 mmol/L (3.3-5.1); Sodium 140 mmol/L (135-145); Total Protein 6.9 g/dL (6.5-8.0); Triglycerides 162 mg/dL (<150)
[2023-06-09 13:11] LABS: TSH reflex Free T4 1.75 uIU/mL (0.32-4.0); Vitamin D 25-OH Total 55.4 ng/mL (>30)
--- NOTE | 2023-06-16 13:53 | PM.EVENT ---
Event Note Date of Service: 06/16/23 Event Note: Pt seen outpatient- awaiting appointment with Janelle Sandoval NP. Pt is currently on FMLA. She reports feeling dizzy, lightheaded, some nausea, decrease olfatory sense. While on the unit, pt had ortho HOTN. Checked BP sitting 120/75, HR 75, standing 117/74, HR 76. No significant ortho HOTN. No cogwheel or rigidity noted on exam. She reports sleeping well. She reports some episodes of nausea (not currently), while on the unit, she had omeprazole. Psychiatrically- no psychosis or delusional. No SI/HI. Future oriented. MSE: Appearance: casually groomed, good hygiene, in NAD. Behavior: cooperative and pleasant. Psychomotor: no agitation or retardation noted. No cogwheel, no rigidity. Speech: clear, normal, rate/rhythm/volume, spontaneous. TP: linear TC: feeling better psychiatrically but dizziness/lightheaded. Mood: good Affect: congruent SI: none HI: none VH/AH: none Delusions: none Insight/judgment: intact x 2. Memory/cog: alert,oriented x 3. grossly intact to conversational testing. PLAN 1. no overt ortho HOTN. we discussed switching risperidone 1mg po qhs to paliperidone 3mg po qhs- may have less effect on alpha adrenergic receptors than risperidone and still same active component to treat Bipolar Disorder. Apparently- some loss of taste with risperidone has been reported. 2. In no acute psychiatric distress, in factdoing much better. 3. No tachycardia at this moment, but did have when she was on the unit- may benefit from following up with cardiology to further investigate. Time Spent With Patient Time: Total time managing care of this patient today _30___ minutes.
== END 2023-06-09 08:46 | disposition home or self-care (01) ==
LOC: HO.MAMMO 08:45
PROVIDERS: PCP Internal Medicine; Visit Provider Internal Medicine
DX: Z12.31 Encounter for screening mammogram for malignant neoplasm of breast (principal); E78.5 Hyperlipidemia, unspecified; I10 Essential (primary) hypertension; E55.9 Vitamin D deficiency, unspecified; Z00.00 Encounter for general adult medical examination without abnormal findings
CPT/HCPCS: 36415; 77063; 77067; 80053; 80061; 82306; 84443; 85025

== ENCOUNTER → 2023-06-09 11:00 | Outpatient (BNV) | payer BC, SELFPAY | PROVIDERS: PCP Internal Medicine; Visit Provider Radiology Diagnostic Radiology | DX: Z12.31 Encounter for screening mammogram for malignant neoplasm of breast (principal) | CPT/HCPCS: 77063; 77067 ==

== ENCOUNTER 2023-06-12 13:25 | Outpatient (AMB) | payer BC, SELFPAY ==
[2023-06-12 13:28] VITALS: BP 140/90; PULSE 102; O2SAT 98; BMI 31.4
--- NOTE | 2023-06-12 13:28 | MHC.PC.OV ---
Vital Signs 06/12/23 13:28 Height 5 ft 1 in Weight 166 lb BMI 31.4 BP 140/90 H Blood Pressure Location Lt brachial Position Sitting Pulse 102 H Pulse Source Pulse Oximeter Pulse Oximetry (%) 98 Oxygen Delivery Method Room Air Intake Visit Reasons: [facility] discharge 05/22-05/31 for si Intake Note: Pt is here today for a hospital follow up visit. Allergies povidone-iodine [Betadine] Allergy (Unknown, Verified 01/02/23 09:55) discomfort, no swelling or pain soap [Betadine] Allergy (Unknown, Verified 01/02/23 09:55) discomfort, no swelling or pain Medication List - Last Reconciled 06/12/23 by Selma Payton MD lisinopril 5 mg PO BID risperidone 1 mg PO BEDTIME rosuvastatin (Crestor) 10 mg PO DAILY Tobacco use date assessed: 06/12/23 Dental Screening Dental Screen Date: 06/12/23 Did you have a dental visit in the last 12 months?: Yes Did you have a dental problem in the last 6 months where you did not have access to dental care?: No Was dental information given to patient?: Patient has dentist HPI [facility] discharge 05/22-05/31 for si HPI Details Pt presents for f/u hospitalization for acute psychosis/bipolar from 05/21 to 05/30. The episode was triggered by stress at work. Pt reports feeling dizzy , fullness in the head since discharged home for 2 weeks and started taking risperidone. Patient denies hallucinations and he reports improved sleep. Escitalopram stopped without a taper during admission 3 weeks ago. Patient has an appointment with psychiatric prescriber and a counselor next week. [facility] Medical History Normal colonoscopy Annual physical exam Psychosis Depression Chronic anxiety Hyperlipidemia HTN (hypertension) Surgical History Hx of cholecystectomy Family History Father Glaucoma Mother Arthritis Maternal Aunt Breast cancer Social History Household Members: Spouse Housing: House Do you presently have visiting nurse or other home services: No Alcohol intake: current Alcohol intake frequency: does not drink Patient Tobacco Use Status: Never used Tobacco e-Cigarette/Vaping Use: Never Used service: No Current occupational status: employed Sexual orientation: Straight/Heterosexual Cognitive needs: No Hearing needs: No Vision needs: Yes Female Reproductive History Menstrual Age of Menarche: 12 Questionnaire Thrive Questionnaire Date Thrive assessed: 05/23/23 PRIMO-7 AMB Questionnaire PRIMO-7 Date PRIMO - 7 assessed: 01/02/23 Source: Developed by Drs. Theo Rojas, Milka Tsang, Harmeet Obrien and colleagues, with an educational grey from [employer]. Review of Systems Const All systems reviewed & are unremarkable except as noted in HPI and below Reports no additional complaints Eyes Reports no additional complaints ENT Reports no additional complaints Card Reports no additional complaints Resp Reports no additional complaints GI Reports no additional complaints Reports no additional complaints Physical exam (Primary Care) Vital Signs: Last Vital Signs Pulse 102 H 06/12/23 13:28 BP 126/72 06/12/23 13:28 Pulse Ox 98 06/12/23 13:28 Oxygen Delivery Method Room Air 06/12/23 13:28 BMI result Body Mass Index 31.4 Tobacco/Smoking Status: Tobacco use Status Tobacco use date assessed 06/12/23 06/12/23 13:30 Patient Tobacco Use Status Never used Tobacco 06/12/23 13:30 e-Cigarette/Vaping Use Never Used 06/12/23 13:30 Thrive Assessment: Date of Thrive Assessment Date Thrive assessed 05/23/23 06/12/23 13:30 Const General: no acute distress HENMT Face and sinus: Yes normal facial exam Throat: Yes posterior oropharynx normal Neck Neck: Yes no lymphadenopathy and Yes supple Resp Effort & Inspection: normal respiratory effort Auscultation: clear to auscultation bilaterally Cardio Rhythm: regular rhythm Heart sounds: S1 normal heart sound present and S2 normal heart sound present GI Inspection: Yes normal to inspection Palpation (GI): Soft to palpation Percussion: Yes normal to percussion Auscultation: normal bowel sounds Assessment and Plan Assessment & Plan (1) Bipolar disorder with psychotic features: Code(s): F31.9 - Bipolar disorder, unspecified Plan: Patient will continue medications prescribed by psychiatry and will follow-up with Psychiatry (2) HTN (hypertension): Code(s): I10 - Essential (primary) hypertension Plan: Increase lisinopril to 10 mg a day follow-up in 1 month for blood pressure check (3) Hyperlipidemia: Code(s): E78.5 - Hyperlipidemia, unspecified Plan: Continue crestor Medications: Changed From lisinopril 5 mg PO DAILY 90 tabs 3RF To lisinopril 5 mg PO BID 180 tabs 3RF Coding Level of Care Code Est Pt Level 4 (45723) Diagnoses Bipolar disorder with psychotic features F31.9 HTN (hypertension) I10 Hyperlipidemia E78.5
== END 2023-06-12 14:42 | disposition home or self-care (01) ==
PROVIDERS: Visit Provider Internal Medicine
DX: F31.9 Bipolar disorder, unspecified (principal); I10 Essential (primary) hypertension; E78.5 Hyperlipidemia, unspecified
CPT/HCPCS: 99214

== ENCOUNTER 2023-06-24 12:35 | Outpatient (AMB) | payer BC, SELFPAY ==
--- NOTE | 2023-06-24 12:40 | MHC.PC.OV ---
Vital Signs 06/24/23 12:42 Height 5 ft 1 in Weight 166 lb 4 oz BMI 31.4 BP 140/82 H Blood Pressure Location Rt brachial Position Sitting Pulse 82 Pulse Source Pulse Oximeter Pulse Oximetry (%) 99 Oxygen Delivery Method Room Air Intake Visit Reasons: BP concerns Allergies povidone-iodine [Betadine] Allergy (Unknown, Verified 06/24/23 12:42) discomfort, no swelling or pain soap [Betadine] Allergy (Unknown, Verified 06/24/23 12:42) discomfort, no swelling or pain Medication List - Last Reconciled 06/24/23 by Selma Payton MD lisinopril 5 mg PO DAILY paliperidone ER 3 mg PO QAM rosuvastatin (Crestor) 10 mg PO DAILY Tobacco use date assessed: 06/12/23 HPI BP concerns HPI Details Pt presents for f/u of HTN. Pt was evaluated by psychiatry and Risperidone was changed to Paliperidone 1 week ago because of side effects.Pt reports feeling better, less fuzzy and improved sense of taste. She tried taking lisinopril 5 mg twice a day but reported low blood pressure and stopped taking it for 2 days. Patient reports occasionally increased heart rate up to 120 when feeling anxious. Patient denies chest pain or shortness of breath. [facility] Medical History Normal colonoscopy Annual physical exam Psychosis Depression Chronic anxiety Hyperlipidemia HTN (hypertension) Surgical History Hx of cholecystectomy Family History Father Glaucoma Mother Arthritis Maternal Aunt Breast cancer Social History Household Members: Spouse Housing: House Do you presently have visiting nurse or other home services: No Alcohol intake: current Alcohol intake frequency: does not drink Patient Tobacco Use Status: Never used Tobacco e-Cigarette/Vaping Use: Never Used service: No Current occupational status: employed Sexual orientation: Straight/Heterosexual Cognitive needs: No Hearing needs: No Vision needs: Yes Female Reproductive History Menstrual Age of Menarche: 12 Questionnaire Thrive Questionnaire Date Thrive assessed: 05/23/23 PRIMO-7 AMB Questionnaire PRIMO-7 Date PRIMO - 7 assessed: 01/02/23 Source: Developed by Drs. Theo Rojas, Milka Tsang, Harmeet Obrien and colleagues, with an educational grey from [employer]. Review of Systems Const All systems reviewed & are unremarkable except as noted in HPI and below Reports no additional complaints Eyes Reports no additional complaints ENT Reports no additional complaints Card Reports no additional complaints Resp Reports no additional complaints GI Reports no additional complaints Reports no additional complaints Physical exam (Primary Care) Vital Signs: Last Vital Signs Pulse 82 06/24/23 12:42 BP 140/82 H 06/24/23 12:42 Pulse Ox 99 06/24/23 12:42 Oxygen Delivery Method Room Air 06/24/23 12:42 BMI result Body Mass Index 31.4 Tobacco/Smoking Status: Tobacco use Status Tobacco use date assessed 06/12/23 06/24/23 12:45 Patient Tobacco Use Status Never used Tobacco 06/24/23 12:45 e-Cigarette/Vaping Use Never Used 06/24/23 12:45 Thrive Assessment: Date of Thrive Assessment Date Thrive assessed 05/23/23 06/24/23 12:45 Const General: no acute distress HENMT Ears: hearing grossly normal bilaterally General nose exam: Normal external nose present Neck Neck: Yes no lymphadenopathy and Yes supple Resp Effort & Inspection: normal respiratory effort Auscultation: clear to auscultation bilaterally Cardio Rhythm: regular rhythm Heart sounds: S1 normal heart sound present and S2 normal heart sound present GI Inspection: Yes normal to inspection Palpation (GI): Soft to palpation Assessment and Plan Assessment & Plan (1) Palpitations: Code(s): R00.2 - Palpitations Plan: EKG showed normal sinus rhythm no ST-T changes with heart rate of 72, Holter and echocardiogram will be obtained (2) HTN (hypertension): Code(s): I10 - Essential (primary) hypertension Plan: Patient was advised to restart lisinopril 5 mg a day (her usual dose before psychotic episode) (3) Bipolar disorder with psychotic features: Code(s): F31.9 - Bipolar disorder, unspecified Plan: Follow-up with Psychiatry Orders: Orders ECG 3 day holter monitor Today R00.2 - Palpitations CA echo transthoracic complete Today I10 - Essential (primary) hypertension, R00.2 - Palpitations Medications: Changed From lisinopril 5 mg PO BID 180 tabs 3RF To lisinopril 5 mg PO DAILY Coding Level of Care Code Est Pt Level 4 (90439) Diagnoses Palpitations R00.2 HTN (hypertension) I10 Bipolar disorder with psychotic features F31.9
[2023-06-24 12:42] VITALS: BP 140/82; PULSE 82; O2SAT 99; BMI 31.4
== END 2023-06-24 13:30 | disposition home or self-care (01) ==
PROVIDERS: PCP Internal Medicine; Visit Provider Internal Medicine
DX: R00.2 Palpitations (principal); I10 Essential (primary) hypertension; F31.9 Bipolar disorder, unspecified
CPT/HCPCS: 99214

== ENCOUNTER → 2023-07-15 13:03 | Outpatient (REF) | payer BC, SELFPAY ==
--- NOTE | 2023-07-15 13:07 | CA_ITS ---
Transthoracic Echocardiogram Patient (Last, First, Middle): Candi Hanna, Gender: Female Date of : 1970 Age: 52 Procedure Date: 07/15/2023 Procedure Type: Transthoracic Echocardiogram Location: OP Height: 154.94 cm Weight: 76.2 kg BSA: 1.75 m2 Heart Rate: bpm BP: 124 / 84 mmHg Chief Accounting Officer: DIONTE Referring MD: Selma Payton MD Symptoms: R00.2 - Palpitations Study Quality: Adequate ECG Rhythm: Sinus Conclusions: - The left ventricular systolic function is normal. The calculated ejection fraction is 58% by biplane method. - No obvious valvular pathology seen on this study. Findings Left Ventricle Normal left ventricular cavity size. There is normal left ventricular wall thickness. The left ventricular systolic function is normal. The calculated ejection fraction is 58% by biplane method. There is no evidence of regional wall motion abnormalities. Diastolic function is normal for age. LV peak GLS -15.1%. Possible underestimation. Right Ventricle Normal right ventricular cavity size and systolic function. Atria Both atria are normal in size. Aortic Valve There is a normal trileaflet aortic valve. There is no aortic valve stenosis. There is no aortic valve regurgitation. Mitral Valve The mitral valve appears normal. There is no mitral valve regurgitation. There is no mitral valve stenosis. Pulmonic Valve The pulmonic valve is likely normal. Tricuspid Valve There is no tricuspid valve regurgitation. Tricuspid regurgitation envelope is inadequate for calculation of right ventricular systolic pressure. Great Vessels The asc aorta and aortic arch are normal in size. Venous The inferior vena cava was not well visualized. Pericardium/Pleural There is no evidence of pericardial effusion. Prior Study Comparison No prior study available for comparison. Recommendations, Care & Conclusions No obvious valvular pathology seen on this study. Measurements 2D Linear Measurements IVSd: 0.84 0.6-0.9/0.6-1.0 cm LVIDd: 3.80 3.9-5.3/4.2-5.9 cm LVIDd Index: 2.17 2.4-3.2/2.2-3.1 cm/m2 LVIDs: 2.47 2.0-3.6 cm LVPWd: 0.88 0.7-1.1 cm LA Diam: 2.50 2.7-3.8/3.0-4.0 cm LAIDs Index: 1.43 1.5-2.3 cm/m2 LV Mass: 117.76 67-162/88-224 g LV Mass Index: 67.29 43-95/49-115 g/m2 LVOT Diam: 2.00 3.0+(-)1.3 cm 2D Systolic Function EF 4C: 59.60 >55% EF 2C: 60.60 >55% EF BiP: 58.20 >55% Mitral Valve MV Pk E: 0.84 MV PK A: 0.66 MV Decel Time: 173.00 E/A: 1.30 E'Lateral: 11.20 E'Medial: 8.27 E/E' Med: 10.20 E/E' Lat: 7.50 PHT: 51.00 MVA PHT: 4.31 Decel Edmunds: 4.84 Aortic Valve AoV Pk Moe: 1.40 AoV Mn Moe: 0.95 AoV VTI: 0.29 AoV Pk Grad: 8.00 Aov Mn Grad: 4.00 NEHA Cont.VTI: 2.20 LVOT LVOT Pk Moe: 1.05 LVOT Mn Moe: 0.69 LVOT VTI: 0.21 LVOT Pk Grad: 4.00 LVOT Mn Grad: 2.00 LVOT Diam: 2.00 LVOT Area: 3.14 Diastolic Function MV Pk E: 0.84 MV Pk A: 0.66 E/A: 1.30 E'Medial: 8.27 E/E' Med: 10.20 E' Laterial: 11.20 E/E' Lat: 7.50 Right Ventricle TAPSE (mm): 21.60 TVS' Moe: 11.20 Tricuspid Valve TR Pk Moe: 1.76 TR Pk Grad: 12.00 Great Vessels Aorta Sinus of Valsalva: 2.96 2.0-3.[address] [place]: 2.30 1.7-3.4 cm Ao Asc: 3.10 2.1-3.4 cm Ao Arch: 2.50 Updated in Other Vendor System with Status of Final Bacilio Blankenship MD electronically signed on 07/16/2023 11:21:55 AM with status of Final
--- NOTE | 2023-07-15 13:07 | HM_ITS ---
* Total monitoring time 3 days. * Underlying rhythm is sinus. Average ventricular rate 96/Min. Range 67 to 156/Min. About 34% of the time, rate > 100/Min. * Very rare supraventricular ectopy. One isolated ventricular ectopic beat. * No sustained arrhythmias. * No significant pauses or AV blocks. * Patient markers used in association with sinus rhythm and sinus tachycardia. * No diary events. MTDD
== END ==
LOC: HO.CARD 13:03
PROVIDERS: PCP Internal Medicine; Visit Provider Internal Medicine
DX: R00.2 Palpitations (principal); I10 Essential (primary) hypertension
CPT/HCPCS: 93242; 93306; 93356

== ENCOUNTER → 2023-07-15 13:07 | Outpatient (BNV) | payer BC, SELFPAY | PROVIDERS: PCP Internal Medicine; Visit Provider Internal Medicine | DX: I47.10 Supraventricular tachycardia, unspecified (principal) | CPT/HCPCS: 93244; 93306 ==

== ENCOUNTER 2023-07-17 10:52 | Outpatient (AMB) | payer BC, SELFPAY ==
--- NOTE | 2023-07-17 11:03 | MHC.PC.OV ---
Vital Signs 07/17/23 11:04 Height 5 ft 1 in Weight 170 lb BMI 32.1 BP 118/66 Blood Pressure Location Lt brachial Position Sitting Pulse 114 H Pulse Source Pulse Oximeter Pulse Oximetry (%) 98 Oxygen Delivery Method Room Air Intake Visit Reasons: Follow up Intake Note: Pt is here today for a follow up visit. on BP.Pt states that she has been having swelling in her whole body. Allergies povidone-iodine [Betadine] Allergy (Unknown, Verified 07/17/23 11:09) discomfort, no swelling or pain soap [Betadine] Allergy (Unknown, Verified 07/17/23 11:09) discomfort, no swelling or pain Medication List - Last Reconciled 07/17/23 by Selma Payton MD lisinopril 5 mg PO DAILY paliperidone ER 3 mg PO QAM rosuvastatin (Crestor) 10 mg PO DAILY Tobacco use date assessed: 06/12/23 Dental Screening Dental Screen Date: 07/17/23 Did you have a dental visit in the last 12 months?: Yes Did you have a dental problem in the last 6 months where you did not have access to dental care?: No Was dental information given to patient?: Patient has dentist HPI Follow up HPI Details Patient presents for the follow-up on hypertension hyperlipidemia. She f/u with psychiatry for psychosis/depression. [facility] Medical History Normal colonoscopy Annual physical exam Psychosis Depression Chronic anxiety Hyperlipidemia HTN (hypertension) Surgical History Hx of cholecystectomy Family History Father Glaucoma Mother Arthritis Maternal Aunt Breast cancer Social History Household Members: Spouse Housing: House Do you presently have visiting nurse or other home services: No Alcohol intake: current Alcohol intake frequency: does not drink Patient Tobacco Use Status: Never used Tobacco e-Cigarette/Vaping Use: Never Used service: No Current occupational status: employed Sexual orientation: Straight/Heterosexual Cognitive needs: No Hearing needs: No Vision needs: Yes Female Reproductive History Menstrual Age of Menarche: 12 Questionnaire Thrive Questionnaire Date Thrive assessed: 05/23/23 PRIMO-7 AMB Questionnaire PRIMO-7 Date PRIMO - 7 assessed: 01/02/23 Source: Developed by DrsEvie Rojas, Milka Tsang, Harmeet Obrien and colleagues, with an educational grey from [employer]. Review of Systems Const All systems reviewed & are unremarkable except as noted in HPI and below Eyes Reports no additional complaints ENT Reports no additional complaints Card Reports no additional complaints Resp Reports no additional complaints GI Reports no additional complaints Reports no additional complaints Physical exam (Primary Care) Vital Signs: Last Vital Signs Pulse 114 H 07/17/23 11:04 BP 118/66 07/17/23 11:04 Pulse Ox 98 07/17/23 11:04 Oxygen Delivery Method Room Air 07/17/23 11:04 BMI result Body Mass Index 32.1 Tobacco/Smoking Status: Tobacco use Status Tobacco use date assessed 06/12/23 07/17/23 11:09 Patient Tobacco Use Status Never used Tobacco 07/17/23 11:09 e-Cigarette/Vaping Use Never Used 07/17/23 11:09 Thrive Assessment: Date of Thrive Assessment Date Thrive assessed 05/23/23 07/17/23 11:09 Const General: no acute distress Neck Neck: Yes supple Resp Effort & Inspection: normal respiratory effort Auscultation: clear to auscultation bilaterally Cardio Rhythm: regular rhythm Heart sounds: S1 normal heart sound present and S2 normal heart sound present GI Inspection: Yes normal to inspection Palpation (GI): Soft to palpation Assessment and Plan Assessment & Plan (1) Bipolar disorder with psychotic features: Comment: f/u with psychiatry Code(s): F31.9 - Bipolar disorder, unspecified (2) HTN (hypertension): Code(s): I10 - Essential (primary) hypertension Plan: cont Lisinopril (3) Hyperlipidemia: Code(s): E78.5 - Hyperlipidemia, unspecified Plan: cont statin, PE in 3 months Orders: Orders Complete Blood Count Auto Diff 3 Months E55.9 - Vitamin D deficiency, unspecified, E78.5 - Hyperlipidemia, unspecified, I10 - Essential (primary) hypertension TSH reflex Free T4 3 Months E55.9 - Vitamin D deficiency, unspecified, E78.5 - Hyperlipidemia, unspecified, I10 - Essential (primary) hypertension Vitamin D 25-OH Total 3 Months E55.9 - Vitamin D deficiency, unspecified, E78.5 - Hyperlipidemia, unspecified, I10 - Essential (primary) hypertension Comprehensive [place]. Panel Fast 3 Months E55.9 - Vitamin D deficiency, unspecified, E78.5 - Hyperlipidemia, unspecified, I10 - Essential (primary) hypertension Lipid Panel 3 Months E55.9 - Vitamin D deficiency, unspecified, E78.5 - Hyperlipidemia, unspecified, I10 - Essential (primary) hypertension Coding Level of Care Code Est Pt Level 4 (20437) Diagnoses Bipolar disorder with psychotic features F31.9 HTN (hypertension) I10 Hyperlipidemia E78.5
[2023-07-17 11:04] VITALS: BP 118/66; PULSE 114; O2SAT 98; BMI 32.1
== END 2023-07-17 12:56 | disposition home or self-care (01) ==
PROVIDERS: PCP Internal Medicine; Visit Provider Internal Medicine
DX: F31.9 Bipolar disorder, unspecified (principal); I10 Essential (primary) hypertension; E78.5 Hyperlipidemia, unspecified
CPT/HCPCS: 99214

== ENCOUNTER 2023-08-19 11:09 | Outpatient (AMB) | payer BC, SELFPAY ==
[2023-08-19 11:25] VITALS: BP 130/70; BMI 32.5
--- NOTE | 2023-08-19 11:25 | MHC.OFFVIS ---
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 She is doing well with no concerns. Attempting to eat a healthy diet with calcium and vitamin D and stays active with exercise. Currently sexually active. Denies any vaginal dryness or irritation. Mirena placed 2017. Last pap smear; 2022. Last mammogram; 2022. Colonoscopy is UTD. Denies any family history of breast, ovarian or colon cancer. [facility] Medical History Normal colonoscopy Annual physical exam Psychosis Depression Chronic anxiety Hyperlipidemia HTN (hypertension) Surgical History Hx of cholecystectomy Family History Father Glaucoma Mother Arthritis Maternal Aunt Breast cancer Social History Household Members: Spouse Housing: House Do you presently have visiting nurse or other home services: No Alcohol intake: current Alcohol intake frequency: does not drink Patient Tobacco Use Status: Never used Tobacco e-Cigarette/Vaping Use: Never Used service: No Current occupational status: employed Sexual orientation: Straight/Heterosexual Cognitive needs: No Hearing needs: No Vision needs: Yes Female Reproductive History Menstrual Age of Menarche: 12 control method: none and progestin IUCD (Mirena 10/31/2017) Total pregnancies: 2 Full term: 2 Date of last pap smear: 08/14/22 (negative) Review of Systems Const All systems reviewed & are unremarkable except as noted in HPI and below Reports as per HPI Eyes Reports no additional complaints ENT Reports no additional complaints Card Reports no additional complaints Resp Reports no additional complaints GI Reports as per HPI and Reports no additional complaints Reports as per HPI Musc Reports no additional complaints Skin/Breast Reports as per HPI Neuro Reports no additional complaints Psych Reports no additional complaints Endo Reports no additional complaints Steven/Lymph Reports no additional complaints Aller/Immun Reports no additional complaints Physical Exam Vital Signs: Last Vital Signs BP 130/70 08/19/23 11:25 BMI result Body Mass Index 32.5 Const General: cooperative, healthy appearing, no acute distress, well developed and alert Orientation/consciousness: patient oriented x3 HEENT Head: Yes normal to inspection Eyes General: appearance normal, both eyes and all related structures Neck Neck: Yes normal visual inspection Thyroid: Thyroid normal Chest Chest palpation & inspection: normal inspection of the chest and other (no puckering, dimpling, peau de orange, retraction, discharge, masses) Breast/axilla inspection: normal inspection of the breasts Breast/axilla palpation: normal palpation of the breasts Resp Effort & Inspection: normal respiratory effort GI Inspection: Yes normal to inspection Palpation (GI): Soft to palpation Rectal Exam - Female: deferred General: Yes bladder normal to palpation External Female Exam: normal external appearance and normal appearance of the urethra Speculum Exam - Vagina: normal appearance of the vagina, normal palpation and normal vaginal discharge Speculum Exam - Cervix: normal appearance of the cervix, normal palpation and Other cervical findings present (IUD strings present) Bimanual exam- vagina & uterus: normal bimanual exam, normal palpation, uterine size normal, bladder normal to palpation, normal palpation and non-tender Bimanual Exam- Adnexa, other: no masses Skin General skin exam: no rashes or lesions noted Rashes: no rashes Neuro General: patient oriented x3 Cognition (Neuro): normal cognition Extrem General: Yes normal to inspection Psych Attitude: cooperative Thought process: Normal thought process present Assessment & Plan Assessment & Plan (1) Encounter for well woman exam with routine gynecological exam: Code(s): Z01.419 - Encounter for gynecological examination (general) (routine) without abnormal findings (2) Amenorrhea: Code(s): N91.2 - Amenorrhea, unspecified Plan Discussed: Current recommendations for pap smears per ASCCP guidelines. Breast awareness, periodic self breast exams and yearly mammogram. Maintain a healthy lifestyle, well balanced diet including Calcium 1,200 mg and Vitamin D 600 IU daily, and routine exercise. Mirena IUD inserted 2017, can chek FSH level with next labs, consider removal if no longer needed or in 2 yrs. All of her questions and concerns were addressed to the best of my ability. 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 This note is constructed using voice recognition software. While every effort has been made to ensure accuracy, retoucher errors may have been included. Orders: Orders Follicle Stimulating Hormone Today N91.2 - Amenorrhea, unspecified Coding Level of Care Code Est Pt Prev Care 40-64y(83532) Diagnoses Encounter for well woman exam with routine gynecological exam Z01.419 Amenorrhea N91.2
== END 2023-08-19 12:05 | disposition home or self-care (01) ==
LOC: HO.HWS 11:09
PROVIDERS: PCP Internal Medicine; Visit Provider Advanced Practice Midwife
DX: Z01.419 Encounter for gynecological examination (general) (routine) without abnormal findings (principal); N91.2 Amenorrhea, unspecified
CPT/HCPCS: 99396

== ENCOUNTER → 2023-08-19 11:09 | Outpatient (BNVA) | payer BC, SELFPAY | PROVIDERS: PCP Internal Medicine; Visit Provider Advanced Practice Midwife ==

== ENCOUNTER 2023-11-05 14:03 | Outpatient (AMB) | payer BC, SELFPAY ==
[2023-11-05 14:18] VITALS: BP 142/84; PULSE 104; TEMP 36.8; O2SAT 98; BMI 30.6
--- NOTE | 2023-11-05 14:18 | AM.OFFWIN_ITS ---
Intake Vital Signs 11/05/23 14:18 Height 5 ft 1 in Weight 162 lb BMI 30.6 BP 142/84 H Blood Pressure Location Rt brachial Position Sitting Pulse 104 H Pulse Source Pulse Oximeter Temp 98.2 F Temp Source Oral Pulse Oximetry (%) 98 Oxygen Delivery Method Room Air Intake Visit Reasons: EP UTI Intake Note: Pt presents to the office today for c/o UTI symptoms. Pt states she has some abdomen pain, and chills x2 weeks. Patient Tobacco Use Status: Never used Tobacco Allergies povidone-iodine [Betadine] Allergy (Unknown, Verified 11/05/23 14:21) discomfort, no swelling or pain soap [Betadine] Allergy (Unknown, Verified 11/05/23 14:21) discomfort, no swelling or pain HPI HPI Comments History of Present Illness Details Patient is a 52yo F who presents with concern UTI She said last week she noticed an episode of hematuria on toilet paper when wiping and had associated chills No associated dysuria, frequency or urgency Had minimal suprapubic discomfort at that time She denies any symptoms currently. Pain, 0/10 Does not see blood anymore No other complaints She has anxiety and told symptoms to her therapist who recommended she be seen at She has PCP annual visit on December 02 [facility] Medical History Normal colonoscopy Annual physical exam Psychosis Depression Chronic anxiety Hyperlipidemia HTN (hypertension) Surgical History Hx of cholecystectomy Family History Father Glaucoma Mother Arthritis Maternal Aunt Breast cancer Social History Household Members: Spouse Housing: House Do you presently have visiting nurse or other home services: No Alcohol intake: current Alcohol intake frequency: does not drink Patient Tobacco Use Status: Never used Tobacco e-Cigarette/Vaping Use: Never Used service: No Current occupational status: employed Sexual orientation: Straight/Heterosexual Cognitive needs: No Hearing needs: No Vision needs: Yes Female Reproductive History Menstrual Age of Menarche: 12 Review of Systems Const Reports chills, Denies fatigue and Denies fever(s) Card Denies chest pain and Denies dyspnea Resp Denies cough and Denies dyspnea GI Denies abdominal pain, Denies constipation, Denies diarrhea, Denies nausea and Denies vomiting Reports hematuria, Denies dysuria, Denies urinary incontinence, Denies urinary hesitancy and Denies urinary urgency Musc Denies back pain and Denies myalgias Skin/Breast Denies rash Endo Denies fatigue Physical Exam Vital Signs: Last Vital Signs Temp 98.2 F 11/05/23 14:18 Pulse 104 H 11/05/23 14:18 BP 142/84 H 11/05/23 14:18 Pulse Ox 98 11/05/23 14:18 Oxygen Delivery Method Room Air 11/05/23 14:18 BMI result Body Mass Index 30.6 General: Non-toxic, NAD. Speaking full sentences. Eye: EOMI Respiratory: No respiratory distress Abdominal: BS present. No tenderness to palpation. No CVAT. MSK: Full ROM extremities. Neurology: A. No aphasia or facial droop. Gait without abnormality Psych: Good mood and affect Results AMB Urinalysis, Automated UA Leukoctes 0 Eugenie/uL Last Edit by Kalyn Kaur MA on 11/05/23 14:39 UA Nitrite Negative Last Edit by Kalyn Kaur MA on 11/05/23 14:39 UA Urobilinogen 0.2 mg/dL Last Edit by Kalyn Kaur MA on 11/05/23 14:39 UA Protein 0 mg/dL Last Edit by Kalyn Kaur MA on 11/05/23 14:39 UA pH 6.0 Last Edit by Kalyn Kaur MA on 11/05/23 14:39 UA Blood 25 Drake/uL Last Edit by Kalyn Kaur MA on 11/05/23 14:39 UA Specific [place] 1.010 Last Edit by Kalyn Kaur MA on 11/05/23 14:39 UA Ketone Negative Last Edit by Kalyn Kaur MA on 11/05/23 14:39 UA Bilirubin 0 mg/dL Last Edit by Kalyn Kaur MA on 11/05/23 14:39 UA Glucose 0 mg/dL Last Edit by Kalyn Kaur MA on 11/05/23 14:39 Results Reviewed Results Reviewed: Laboratory Last Values Urine pH (Auto) 6.0 11/05/23 14:38 Specific [place] (Auto) 1.010 11/05/23 14:38 Urine Protein (Auto) 0 mg/dL 11/05/23 14:38 Glucose (UA)(Auto) 0 mg/dL 11/05/23 14:38 Urine Ketones (Auto) Negative 11/05/23 14:38 Urine Blood (Auto) 25 Drake/uL 11/05/23 14:38 Urine Nitrite (Auto) Negative 11/05/23 14:38 Urine Bilirubin (Auto) 0 mg/dL 11/05/23 14:38 Urine Urobilinogen (Auto) 0.2 mg/dL 11/05/23 14:38 Leukocyte Esterase (Auto) 0 Eugenie/uL 11/05/23 14:38 Assessment & Plan Assessment & Plan (1) Hematuria: Code(s): R31.9 - Hematuria, unspecified Qualifiers: Hematuria type: unspecified type Qualified Code(s): R31.9 - Hematuria, unspecified Plan: Patient seen and evaluated. 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
== END 2023-11-05 15:10 | disposition home or self-care (01) ==
PROVIDERS: PCP Internal Medicine; Visit Provider Physician Assistant
DX: Z13.9 Encounter for screening, unspecified (principal); R31.9 Hematuria, unspecified
CPT/HCPCS: 81003; 99213

== ENCOUNTER 2023-11-05 14:48 | Outpatient (REF) | payer BC, SELFPAY | END 2023-11-05 14:49 | disposition home or self-care (01) | LOC: HO.LAB 14:48 | PROVIDERS: Visit Provider Physician Assistant | DX: R31.9 Hematuria, unspecified (principal) | CPT/HCPCS: 87086 ==

== ENCOUNTER 2023-11-19 11:23 | Outpatient (AMB) | payer BC, SELFPAY ==
[2023-11-19 11:28] VITALS: BP 122/76; PULSE 96; O2SAT 97; BMI 30.4
--- NOTE | 2023-11-19 11:28 | A.OFFPC_ITS ---
Vital Signs 11/19/23 11:28 Height 5 ft 1 in Weight 161 lb BMI 30.4 BP 122/76 Blood Pressure Location Lt brachial Position Sitting Pulse 96 Pulse Source Pulse Oximeter Pulse Oximetry (%) 97 Oxygen Delivery Method Room Air Intake Visit Reasons: Annual PE Intake Note: Pt is here today for PE. Allergies povidone-iodine [Betadine] Allergy (Unknown, Verified 11/19/23 11:29) discomfort, no swelling or pain soap [Betadine] Allergy (Unknown, Verified 11/19/23 11:29) discomfort, no swelling or pain Medication List - Last Reconciled 11/19/23 by Selma Payton MD aripiprazole (Abilify) 2 mg PO BEDTIME lisinopril 5 mg PO DAILY rosuvastatin (Crestor) 10 mg PO DAILY Tobacco use date assessed: 11/19/23 Dental Screening Dental Screen Date: 11/19/23 Did you have a dental visit in the last 12 months?: Yes Did you have a dental problem in the last 6 months where you did not have access to dental care?: No Was dental information given to patient?: Patient has dentist HPI Annual PE HPI0 Details Pt presents for PE. Pt c/o LBP X 2 weeks, worse when sitting at work and at night. Patient denies dysuria hematuria abdominal pain. [facility] Medical History (Updated 11/19/23 @ 12:42 by Selma Payton MD) Normal colonoscopy Annual physical exam Psychosis Depression Chronic anxiety Hyperlipidemia HTN (hypertension) Surgical History Hx of cholecystectomy Family History Father Glaucoma Mother Arthritis Maternal Aunt Breast cancer Social History Household Members: Spouse Housing: House Do you presently have visiting nurse or other home services: No Alcohol intake: current Alcohol intake frequency: does not drink Patient Tobacco Use Status: Never used Tobacco e-Cigarette/Vaping Use: Never Used service: No Current occupational status: employed Sexual orientation: Straight/Heterosexual Cognitive needs: No Hearing needs: No Vision needs: Yes Female Reproductive History Menstrual Age of Menarche: 12 Questionnaire PHQ-9 Over the last 2 weeks, how often have you been bothered by any of the following problems? 1. Little interest or pleasure in doing things: not at all 2. Feeling down, depressed, or hopeless: not at all 3. Trouble falling or staying asleep, or sleeping too much: not at all 4. Feeling tired or having little energy: not at all 5. Poor appetite or overeating: not at all 6. Feeling bad about yourself - or that you are a failure or have let yourself or your family down: not at all 7. Trouble concentrating on things, such as reading the newspaper or watching television: not at all 8. Moving or speaking so slowly that other people could have noticed. Or the opposite - being so fidgety or restless that you have been moving around a lot more than usual: not at all 9. Thoughts that you would be better off or of hurting yourself in some way: not at all Total score: 0 Depression Screening Interpretation: Negative Depression Screening Done: Yes Source: Developed by Drs. Theo Rojas, Milka Tsang, Harmeet Obrien and colleagues, with an educational grey from [employer]. Thrive Questionnaire Date Thrive assessed: 11/19/23 I am a: Patient What is your living situation today?: I have a steady place to live Within the past 12 months, did the food you bought not last and you didn't have the money to get more?: Never true Within the past 12 months, did you worry whether your food would run out before you got money to buy more?: Never true Do you have trouble paying for medicines?: No Do you have trouble getting transportation to medical appointments?: No Do you have trouble paying your heating and electricity bill?: No Do you have trouble taking care of your child, family member or friend?: No Do you have trouble with day-to-day activities such as bathing, preparing meals, shopping, managing finances, etc.?: No Are you currently unemployed and looking for a job?: No Are you interested in more education?: No Please select the resources that you would like help with: None THRIVE Score: 0 AUDIT C Alcohol Use Questionnaire (AUDIT-C) 1. How often do you have a drink containing alcohol?: Never 3. How often do you have six or more drinks on one occasion?: Never Total Score: 0 PRIMO-7 AMB Questionnaire PRIMO-7 Date PRIMO - 7 assessed: 11/19/23 Feeling nervous, anxious, or on edge: 0 = Not at all Not being able to stop or control worryin = Not at all Worrying too much about different things: 0 = Not at all Trouble relaxin = Not at all Being so restless that it is hard to sit still: 0 = Not at all Becoming easily annoyed or irritable: 0 = Not at all Feeling afraid as if something awful might happen: 0 = Not at all Total PRIMO-7 score (0-4 normal; 5-9 mild; 10-14 moderate; 15-21 severe): 0 Source: Developed by Drs. Theo Rojas, Milka Tsang, Harmeet Obrien and colleagues, with an educational grey from [employer]. Review of Systems Const All systems reviewed & are unremarkable except as noted in HPI and below Reports no additional complaints Eyes Reports no additional complaints ENT Reports no additional complaints Card Reports no additional complaints Resp Reports no additional complaints GI Reports no additional complaints Reports no additional complaints Physical exam (Primary Care) Vital Signs: Last Vital Signs Pulse 96 11/19/23 11:28 BP 122/76 11/19/23 11:28 Pulse Ox 97 11/19/23 11:28 Oxygen Delivery Method Room Air 11/19/23 11:28 BMI result Body Mass Index 30.4 Tobacco/Smoking Status: Tobacco use Status Tobacco use date assessed 11/19/23 11/19/23 11:32 Patient Tobacco Use Status Never used Tobacco 11/19/23 11:32 e-Cigarette/Vaping Use Never Used 11/19/23 11:32 PHQ-9: PHQ-9 Score PHQ-9: Total score 0 11/19/23 12:07 Depression Screening Interpretation: Negative Thrive Assessment: Date of Thrive Assessment Date Thrive assessed 11/19/23 11/19/23 11:47 Const General: no acute distress HENMT Head: Yes normal to inspection Ears: hearing grossly normal bilaterally Mouth: Normal oral and palatal mucosa present Eyes General: appearance normal, both eyes and all related structures Neck Neck: Yes no lymphadenopathy and Yes supple Resp Effort & Inspection: normal respiratory effort Auscultation: clear to auscultation bilaterally Cardio Rhythm: regular rhythm Heart sounds: S1 normal heart sound present and S2 normal heart sound present GI Inspection: Yes normal to inspection Palpation (GI): Soft to palpation Percussion: Yes normal to percussion Auscultation: normal bowel sounds Back/Spine/Pelvis Other: Paraspinal tenderness left more than right, straight leg rising 90 degrees bilaterally, full range of motion of both hips Assessment and Plan Assessment & Plan (1) HTN (hypertension): Code(s): I10 - Essential (primary) hypertension Plan: Continue lisinopril (2) Hyperlipidemia: Code(s): E78.5 - Hyperlipidemia, unspecified Plan: cont statin (3) Bipolar disorder with psychotic features: Comment: f/u with psychiatry Code(s): F31.9 - Bipolar disorder, unspecified (4) Microscopic hematuria: Code(s): R31.29 - Other microscopic hematuria Plan: obtain renal US and urine cytology (5) Annual physical exam: Code(s): Z00.00 - Encounter for general adult medical examination without abnormal findings Plan: Well-balanced diet regular physical activity discussed with the patient (6) Normal colonoscopy: Comment: 2015 (7) Lower back pain: Code(s): M54.50 - Low back pain, unspecified Plan: Meloxicam is prescribed and lower back exercises given to the patient Orders: Orders Complete Blood Count Auto Diff 6 Months E78.5 - Hyperlipidemia, unspecified, F31.9 - Bipolar disorder, unspecified, I10 - Essential (primary) hypertension TSH reflex Free T4 6 Months E78.5 - Hyperlipidemia, unspecified, F31.9 - Bipolar disorder, unspecified, I10 - Essential (primary) hypertension US renal BI Today R31.29 - Other microscopic hematuria Comprehensive [place]. Panel Fast 6 Months E78.5 - Hyperlipidemia, unspecified, F31.9 - Bipolar disorder, unspecified, I10 - Essential (primary) hypertension Lipid Panel 6 Months E78.5 - Hyperlipidemia, unspecified, F31.9 - Bipolar disorder, unspecified, I10 - Essential (primary) hypertension Urine Cytology Today R31.29 - Other microscopic hematuria Medications: New meloxicam 15 mg PO DAILY 10 tabs 0RF Coding Level of Care Code Est Pt Prev Care 40-64y(03636) Diagnoses HTN (hypertension) I10 Hyperlipidemia E78.5 Bipolar disorder with psychotic features F31.9 Microscopic hematuria R31.29 Annual physical exam Z00.00 Normal colonoscopy Lower back pain M54.50
== END 2023-11-19 12:21 | disposition home or self-care (01) ==
PROVIDERS: PCP Internal Medicine; Visit Provider Internal Medicine
DX: I10 Essential (primary) hypertension (principal); E78.5 Hyperlipidemia, unspecified; F31.9 Bipolar disorder, unspecified; R31.29 Other microscopic hematuria; Z00.00 Encounter for general adult medical examination without abnormal findings; M54.50 Low back pain, unspecified
CPT/HCPCS: 99396

== ENCOUNTER 2023-11-26 11:30 | Outpatient (REF) | payer BC, SELFPAY ==
--- NOTE | ~2023-11-26 | US_ITS ---
EXAMINATION: US RETROPERITONEAL LIMITED (RENAL ONLY) CLINICAL INFORMATION: Other microscopic hematuria. COMPARISON: Ultrasound abdomen 08/13/2008. TECHNIQUE: Real-time imaging of the kidneys. FINDINGS: RIGHT KIDNEY: 9.7 x 4.5 x 4.7 cm (SAG x AP x TRV). The kidney is normal in size, contour, and echogenicity. Renal cortical thickness is normal. No calculi or focal parenchymal lesions. No hydronephrosis. LEFT KIDNEY: 10.4 x 4.5 x 5.7 cm (SAG x AP x TRV). The kidney is normal in size, contour, and echogenicity. Renal cortical thickness is normal. No calculi or focal parenchymal lesions. No hydronephrosis. US/US renal BI IMPRESSION: Normal renal ultrasound.
== END 2023-11-26 11:31 | disposition home or self-care (01) ==
LOC: HO.HMGCX 11:30
PROVIDERS: PCP Internal Medicine; Visit Provider Internal Medicine
DX: R31.29 Other microscopic hematuria (principal)
CPT/HCPCS: 76775

== ENCOUNTER 2024-05-11 10:29 | Outpatient (REF) | payer BC, SELFPAY ==
[2024-05-11 12:57] LABS: MANUAL DIFF FLAG NO
[2024-05-11 13:10] LABS: Basophils Percent Auto 0.4 % (0-2); Eosinophils Absolute Auto 0.4 X10*3/uL (0.0-0.4); Eosinophils Percent Auto 5.5 % (0-4); Hematocrit 42.9 % (37.0-47.0); Hemoglobin 14.2 g/dl (12.0-16.0); Imm Gran Abs Auto 0.02 X10*3/uL (0.00-0.03); Imm Gran Pct Auto 0.3 % (0.0-0.4); Lymphocytes Absolute Auto 2.9 X10*3/uL (1.2-4.9); Lymphocytes Percent Auto 37.2 % (20-40); Mean Corpuscular HGB Conc 33.1 g/dl (31.0-35.0); Mean Corpuscular Hemoglobin 28.9 pg (27.0-33.0); Mean Corpuscular Volume 87.4 fL (80.0-98.0); Monocytes Absolute Auto 0.6 X10*3/uL (0.1-1.2); Monocytes Percent Auto 7.1 % (2-11); Neutrophils Absolute Auto 3.8 x10*3/uL (2.0-8.3); Neutrophils Percent Auto 49.5 % (45-73); Platelet Count 283 X10*3/uL (160-400); Red Blood Count 4.91 X10*6/uL (4.20-5.50); Red Cell Distribution Width 13.2 % (11.0-16.0); White Blood Count 7.8 X10*3/uL (4.8-10.8)
[2024-05-11 13:45] LABS: Alanine Aminotransferase 40 U/L (0-31); Albumin Level 4.3 g/dL (3.5-5.0); Alkaline Phosphatase 77 U/L (39-117); Anion Gap 13 (12-20); Aspartate Amino Transferase 27 U/L (5-31); Bilirubin Total 0.6 mg/dL (0.0-1.0); Blood Urea Nitrogen 9 mg/dL (9-16); Calcium 9.7 mg/dL (8.4-10.2); Carbon Dioxide 26 mmol/L (22-29); Chloride 109 mmol/L (96-108); Cholesterol 169 mg/dL (<200); Estimated Glomerular Filt Rate > 60; Glucose Fasting 101 mg/dL (60-99); HDL Cholesterol 48 mg/dL (>40); LDL Cholesterol Calculated 83 mg/dL (<100); Potassium 3.9 mmol/L (3.3-5.1); Sodium 144 mmol/L (135-145); TSH reflex Free T4 2.52 uIU/mL (0.32-4.0); Total Protein 6.9 g/dL (6.5-8.0); Triglycerides 190 mg/dL (<150)
== END 2024-05-11 10:30 | disposition home or self-care (01) ==
LOC: HO.HMGCLDS 10:29
PROVIDERS: PCP Internal Medicine; Visit Provider Internal Medicine
DX: I10 Essential (primary) hypertension (principal); E78.5 Hyperlipidemia, unspecified; F31.9 Bipolar disorder, unspecified
CPT/HCPCS: 36415; 80053; 80061; 84443; 85025

== ENCOUNTER 2024-05-17 10:55 | Outpatient (AMB) | payer BC, SELFPAY ==
[2024-05-17 11:17] VITALS: BP 110/68; PULSE 75; O2SAT 97; BMI 29.7
--- NOTE | 2024-05-17 11:17 | MHC.PC.OV ---
Vital Signs 05/17/24 11:17 Height 5 ft 1 in Weight 157 lb BMI 29.7 BP 110/68 Blood Pressure Location Rt brachial Position Sitting Pulse 75 Pulse Source Pulse Oximeter Pulse Oximetry (%) 97 Oxygen Delivery Method Room Air Intake Visit Reasons: 6 month follow up Intake Note: Pt is here today for 6 months follow up visit. Allergies povidone-iodine [Betadine] Allergy (Unknown, Verified 05/17/24 11:26) discomfort, no swelling or pain soap [Betadine] Allergy (Unknown, Verified 05/17/24 11:26) discomfort, no swelling or pain Medication List - Last Reconciled 05/17/24 by Selma Payton MD aripiprazole (Abilify) 7 mg PO BEDTIME lisinopril 5 mg PO DAILY rosuvastatin (Crestor) 10 mg PO DAILY Tobacco use date assessed: 05/17/24 Dental Screening Dental Screen Date: 11/19/23 HPI 6 month follow up HPI Details Pt presents for f/u HTN and hyperlipid PFSH Medical History Normal colonoscopy Annual physical exam Psychosis Depression Chronic anxiety Hyperlipidemia HTN (hypertension) Surgical History Hx of cholecystectomy Family History Father Glaucoma Mother Arthritis Maternal Aunt Breast cancer Social History Household Members: Spouse Housing: House Do you presently have visiting nurse or other home services: No Alcohol intake: current Alcohol intake frequency: does not drink Patient Tobacco Use Status: Never used Tobacco e-Cigarette/Vaping Use: Never Used service: No Current occupational status: employed Sexual orientation: Straight/Heterosexual Cognitive needs: No Hearing needs: No Vision needs: Yes Female Reproductive History Menstrual Age of Menarche: 12 Questionnaire PHQ-9 Over the last 2 weeks, how often have you been bothered by any of the following problems? 1. Little interest or pleasure in doing things: not at all 2. Feeling down, depressed, or hopeless: several days 3. Trouble falling or staying asleep, or sleeping too much: several days 4. Feeling tired or having little energy: not at all 5. Poor appetite or overeating: not at all 6. Feeling bad about yourself - or that you are a failure or have let yourself or your family down: not at all 7. Trouble concentrating on things, such as reading the newspaper or watching television: not at all 8. Moving or speaking so slowly that other people could have noticed. Or the opposite - being so fidgety or restless that you have been moving around a lot more than usual: not at all Depression Screening Interpretation: Negative Depression Screening Done: Yes 00243 - PHQ-9 Billing: Yes Source: Developed by Drs. Theo Rojas, Milka Tsang, Harmeet Obrien and colleagues, with an educational grey from [employer]. Thrive Questionnaire Date Thrive assessed: 11/19/23 AUDIT C Alcohol Use Questionnaire (AUDIT-C) 1. How often do you have a drink containing alcohol?: Never 3. How often do you have six or more drinks on one occasion?: Never Total Score: 0 PRIMO-7 AMB Questionnaire PRIMO-7 Date PRIMO - 7 assessed: 11/19/23 Source: Developed by Drs. Theo Rojas, Milka Tsang, Harmeet Obrien and colleagues, with an educational grey from [employer]. Review of Systems Const All systems reviewed & are unremarkable except as noted in HPI and below Eyes Reports no additional complaints ENT Reports no additional complaints Card Reports no additional complaints Resp Reports no additional complaints Reports no additional complaints Physical exam (Primary Care) Vital Signs: Last Vital Signs Pulse 75 05/17/24 11:17 BP 110/68 05/17/24 11:17 Pulse Ox 97 05/17/24 11:17 Oxygen Delivery Method Room Air 05/17/24 11:17 BMI result Body Mass Index 29.7 Tobacco/Smoking Status: Tobacco use Status Tobacco use date assessed 05/17/24 05/17/24 11:28 Patient Tobacco Use Status Never used Tobacco 05/17/24 11:28 e-Cigarette/Vaping Use Never Used 05/17/24 11:17 Depression Screening Interpretation: Negative Thrive Assessment: Date of Thrive Assessment Date Thrive assessed 11/19/23 05/17/24 11:17 Const General: no acute distress HENMT Head: Yes normal to inspection Eyes General: appearance normal, both eyes and all related structures Neck Neck: Yes no lymphadenopathy and Yes supple Resp Effort & Inspection: normal respiratory effort Auscultation: clear to auscultation bilaterally Cardio Rhythm: regular rhythm Heart sounds: S1 normal heart sound present and S2 normal heart sound present GI Inspection: Yes normal to inspection Coding Level of Care Code Est Pt Level 3 (35327) Diagnoses HTN (hypertension) I10 Hyperlipidemia E78.5 Annual physical exam Z00.00 Assessment & Plan Assessment & Plan (1) HTN (hypertension): Code(s): I10 - Essential (primary) hypertension Category: Medical Plan: cont meds (2) Hyperlipidemia: Code(s): E78.5 - Hyperlipidemia, unspecified Category: Medical Plan: cont statin (3) Annual physical exam: Code(s): Z00.00 - Encounter for general adult medical examination without abnormal findings Category: Medical Plan: return for PE Orders: Orders Complete Blood Count Auto Diff 6 Months E78.5 - Hyperlipidemia, unspecified, I10 - Essential (primary) hypertension, Z00.00 - Encounter for general adult medical examination without abnormal findings Lipid Panel 6 Months E78.5 - Hyperlipidemia, unspecified, I10 - Essential (primary) hypertension, Z00.00 - Encounter for general adult medical examination without abnormal findings Hemoglobin A1c 6 Months E78.5 - Hyperlipidemia, unspecified, I10 - Essential (primary) hypertension, Z00.00 - Encounter for general adult medical examination without abnormal findings Comprehensive [place]. Panel Fast 6 Months E78.5 - Hyperlipidemia, unspecified, I10 - Essential (primary) hypertension, Z00.00 - Encounter for general adult medical examination without abnormal findings
== END 2024-05-17 14:28 | disposition home or self-care (01) ==
PROVIDERS: PCP Internal Medicine; Visit Provider Internal Medicine
DX: I10 Essential (primary) hypertension (principal); E78.5 Hyperlipidemia, unspecified; Z00.00 Encounter for general adult medical examination without abnormal findings

== ENCOUNTER → 2024-05-17 10:55 | Outpatient (BNVA) | payer BC, SELFPAY | PROVIDERS: PCP Internal Medicine; Visit Provider Internal Medicine ==

== ENCOUNTER 2024-08-25 11:11 | Outpatient (AMB) | payer BC, SELFPAY ==
--- NOTE | 2024-08-25 11:20 | A.OFFVIS_ITS ---
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 Can Collector Required: Yes Aluminum Can Collector Language: Yoruba Aluminum Can Collector Services: Aluminum Can Collector Present (Movli) Aluminum Can Collector Name: Yazmin [id number] Information Interpreted: clinical only Resource Development Director: Resource Development Director Present (Priya) Accompanied by: Self / Same As Patient Allergies povidone-iodine [Betadine] Allergy (Unknown, Verified 08/25/24 11:31) discomfort, no swelling or pain soap [Betadine] Allergy (Unknown, Verified 08/25/24 11:31) discomfort, no swelling or pain HPI Comments Details: 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 Currently sexually active w/. Denies any vaginal dryness or irritation. STI testing offered; she declines. Has IUD in place since 2018 wants removal, defers to next year. Attempting to eat a healthy diet and stays active with limited exercise. Last pap smear; 2022. Last mammogram; 2022. Colonoscopy is UTD. Denies any family history of ovarian or colon cancer. FH breast cancer. [facility] Medical History Normal colonoscopy Annual physical exam Psychosis Depression Chronic anxiety Hyperlipidemia HTN (hypertension) Surgical History Hx of cholecystectomy Family History Father Glaucoma Mother Arthritis Maternal Aunt Breast cancer Social History Household Members: Spouse Housing: House Do you presently have visiting nurse or other home services: No Alcohol intake: current Alcohol intake frequency: does not drink Patient Tobacco Use Status: Never used Tobacco e-Cigarette/Vaping Use: Never Used service: No Current occupational status: employed Sexual orientation: Straight/Heterosexual Cognitive needs: No Hearing needs: No Vision needs: Yes Female Reproductive History Menstrual Age of Menarche: 12 control method: progestin IUCD (Mirena 10/2017) Total pregnancies: 2 Full term: 2 Number of Living Children: 2 Date of last pap smear: 08/14/22 (neg pap and hpv) Date of Mammogram: 06/09/23 (Birad 1) Review of Systems Const All systems reviewed & are unremarkable except as noted in HPI and below Reports as per HPI Eyes Reports no additional complaints ENT Reports no additional complaints Card Reports no additional complaints Resp Reports no additional complaints GI Reports as per HPI and Reports no additional complaints Reports as per HPI Musc Reports no additional complaints Skin/Breast Reports as per HPI Neuro Reports no additional complaints Psych Reports no additional complaints Endo Reports no additional complaints Steven/Lymph Reports no additional complaints Aller/Immun Reports no additional complaints Physical Exam Const General: cooperative, healthy appearing, no acute distress, well developed and alert Orientation/consciousness: patient oriented x3 HEENT Head: Yes normal to inspection Eyes General: appearance normal, both eyes and all related structures Neck Neck: Yes normal visual inspection Thyroid: Thyroid normal Chest Chest palpation & inspection: normal inspection of the chest and other (no puckering, dimpling, peau de orange, retraction, discharge, masses) Breast/axilla inspection: normal inspection of the breasts Breast/axilla palpation: normal palpation of the breasts Resp Effort & Inspection: normal respiratory effort GI Inspection: Yes normal to inspection Palpation (GI): Soft to palpation Rectal Exam - Female: deferred General: Yes bladder normal to palpation External Female Exam: normal external appearance and normal appearance of the urethra Speculum Exam - Vagina: normal appearance of the vagina, normal palpation and normal vaginal discharge Speculum Exam - Cervix: normal appearance of the cervix, normal palpation and Other cervical findings present (IUD strings at the os) Bimanual exam- vagina & uterus: normal bimanual exam, normal palpation, uterine size normal, bladder normal to palpation, normal palpation and non-tender Bimanual Exam- Adnexa, other: no masses Skin General skin exam: no rashes or lesions noted Rashes: no rashes Neuro General: patient oriented x3 Cognition (Neuro): normal cognition Extrem General: Yes normal to inspection Psych Attitude: cooperative Thought process: Normal thought process present Assessment & Plan Assessment & Plan (1) Encounter for well woman exam with routine gynecological exam: Code(s): Z01.419 - Encounter for gynecological examination (general) (routine) without abnormal findings Category: Medical Plan Discussed: Current recommendations for pap smears per ASCCP guidelines. Breast awareness, periodic self breast exams and yearly mammogram. Mammogram order placed. Maintain a healthy lifestyle, well balanced diet including Calcium 1,200 mg and Vitamin D 600 IU daily, and routine exercise. Calcium and exercise handouts given. Patient prefers IUD removal to be scheduled next year. Contact the office with any postmenopausal bleeding. Patient verbalizes understanding and agrees to the plan of care. She was given opportunity to ask questions and all questions were answered to the best of my ability. 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 This note is constructed using voice recognition software. While every effort has been made to ensure accuracy, storeroom keeper errors may have been included. Orders: Orders MM tomosynthesis screening BI Today Z12.31 - Encounter for screening mammogram for malignant neoplasm of breast Coding Level of Care Code Est Pt Prev Care 40-64y(89579) Diagnoses Encounter for well woman exam with routine gynecological exam Z01.419
== END 2024-08-25 11:57 | disposition home or self-care (01) ==
LOC: HO.HWS 11:11
PROVIDERS: PCP Internal Medicine; Visit Provider Advanced Practice Midwife
DX: Z01.419 Encounter for gynecological examination (general) (routine) without abnormal findings (principal)
CPT/HCPCS: 99396; 99459

== ENCOUNTER 2024-09-06 10:14 | Outpatient (REF) | payer BC, SELFPAY | END 2024-09-06 10:15 | disposition home or self-care (01) | LOC: HO.MAMMO 10:14 | PROVIDERS: PCP Internal Medicine; Visit Provider Advanced Practice Midwife | DX: Z12.31 Encounter for screening mammogram for malignant neoplasm of breast (principal) | CPT/HCPCS: 77063; 77067 ==

== ENCOUNTER → 2024-09-06 10:30 | Outpatient (BNV) | payer BC, SELFPAY | PROVIDERS: PCP Internal Medicine; Visit Provider Internal Medicine | DX: Z12.31 Encounter for screening mammogram for malignant neoplasm of breast (principal) | CPT/HCPCS: 77063; 77067 ==

== ENCOUNTER 2024-09-08 11:00 | Outpatient (AMB) | payer BC, SELFPAY ==
--- NOTE | 2024-09-08 11:07 | AM.OFFWIN_ITS ---
Intake Vital Signs 09/08/24 11:13 Weight 161 lb BP 130/90 H Blood Pressure Location Lt brachial Position Sitting Pulse 82 Pulse Source Pulse Oximeter Temp 98.1 F Temp Source Oral Pulse Oximetry (%) 97 Oxygen Delivery Method Room Air Intake Visit Reasons: EP-sore throat, sinus congestion, cough, fever Intake Note: Patient here for sinus congestion, cough and fever that has been present for about 1 week now. Patient Tobacco Use Status: Never used Tobacco Allergies povidone-iodine [Betadine] Allergy (Unknown, Verified 09/08/24 11:14) discomfort, no swelling or pain soap [Betadine] Allergy (Unknown, Verified 09/08/24 11:14) discomfort, no swelling or pain Do you need a note to return to daycare/school/sports/work: No HPI HPI Comments History of Present Illness Details 53 y/o female patient who presents to [facility] walk in clinic with URI symptoms for 1 week. Reports cough, chest congestion/tightness, Sinus pressure and headaches. [facility] Medical History Normal colonoscopy Annual physical exam Psychosis Depression Chronic anxiety Hyperlipidemia HTN (hypertension) Surgical History Hx of cholecystectomy Family History Father Glaucoma Mother Arthritis Maternal Aunt Breast cancer Social History Household Members: Spouse Housing: House Do you presently have visiting nurse or other home services: No Alcohol intake: current Alcohol intake frequency: does not drink Patient Tobacco Use Status: Never used Tobacco e-Cigarette/Vaping Use: Never Used service: No Current occupational status: employed Sexual orientation: Straight/Heterosexual Cognitive needs: No Hearing needs: No Vision needs: Yes Female Reproductive History Menstrual Age of Menarche: 12 Review of Systems Const All systems reviewed & are unremarkable except as noted in HPI and below Physical Exam Vital Signs: Last Vital Signs Temp 98.1 F 09/08/24 11:13 Pulse 82 09/08/24 11:13 BP 130/90 H 09/08/24 11:13 Pulse Ox 97 09/08/24 11:13 Oxygen Delivery Method Room Air 09/08/24 11:13 Const General: cooperative and no acute distress Nutritional Appearance: overweight Orientation/consciousness: patient oriented x3 HEENT Head: Yes normocephalic Ears: external ears normal and TM abnormal with fluid behind the TM bilateral General nose exam: Abnormal mucous membranes and turbinates present erythematous Face and sinus: Yes sinuses nontender Mouth: moist mucous membranes Resp Effort & Inspection: normal respiratory effort, able to speak in complete sentences, no audible wheezes and Actively coughing Auscultation: clear to auscultation bilaterally, no crackles, no rales, no rhonchi and no wheezes Cardio Heart sounds: S1 normal heart sound present and S2 normal heart sound present Neuro General: patient oriented x3 Assessment & Plan Assessment & Plan (1) Cough: Code(s): R05.9 - Cough, unspecified Qualifiers: Cough type: acute Qualified Code(s): R05.1 - Acute cough Plan: Ordered Z-pack Ordered SARs Acetaminophen for pain relief Orders: Orders SARS-CoV2/FLU/RSV Today R09.89 - Other specified symptoms and signs involving t he circulatory and respiratory systems Medications: New benzonatate 100 mg PO TID 90 caps 0RF R05.9 - Cough, unspecified dextromethorphan polistirex ER (Delsym 12 hour) 10 mL PO Q12H 89 mL 0RF cough J06.9 - Acute upper respiratory infection, unspecified azithromycin 500 mg PO DAILY 3 days 3 tabs 0RF R05.9 - Cough, unspecified Coding Level of Care Code Est Pt Level 3 (61487) Diagnoses Acute cough R05.1 Cough type: acute Time Spent (min) 15
[2024-09-08 11:13] VITALS: BP 130/90; PULSE 82; TEMP 36.7; O2SAT 97
== END 2024-09-08 11:37 | disposition home or self-care (01) ==
PROVIDERS: PCP Internal Medicine; Visit Provider Nurse Practitioner Family
DX: R05.1 Acute cough (principal)

== ENCOUNTER 2024-09-08 11:00 | Outpatient (REF) | payer BC, SELFPAY ==
[2024-09-08 14:33] LABS: Influenza A PCR NEGATIVE (Negative); Influenza B PCR NEGATIVE (Negative); Resp Syncy Virus RNA Qual PCR POSITIVE (Negative); SARS COV2 PCR INHOUSE NEGATIVE (Negative)
== END 2024-09-08 11:01 | disposition home or self-care (01) ==
LOC: HO.LAB 11:00
PROVIDERS: PCP Internal Medicine; Visit Provider Nurse Practitioner Family
DX: R05.1 Acute cough (principal); R09.89 Other specified symptoms and signs involving the circulatory and respiratory systems
CPT/HCPCS: 0241U

== ENCOUNTER 2024-12-10 11:24 | Outpatient (AMB) | payer BC, SELFPAY ==
[2024-12-10 11:26] VITALS: BP 110/76; PULSE 79; RESP 18; TEMP 36.8; O2SAT 98; BMI 30.2
--- NOTE | 2024-12-10 11:26 | MHC.PC.OV ---
Vital Signs 12/10/24 11:26 Height 5 ft 1 in Weight 160 lb BMI 30.2 BP 110/76 Blood Pressure Location Lt brachial Position Sitting Respiration 18 Pulse 79 Pulse Source Pulse Oximeter Temp 98.2 F Temp Source Oral Pulse Oximetry (%) 98 Oxygen Delivery Method Room Air Intake Visit Reasons: Annual PE Intake Note: Pt is here today for PE. Allergies povidone-iodine [Betadine] Allergy (Unknown, Verified 12/10/24 11:26) discomfort, no swelling or pain soap [Betadine] Allergy (Unknown, Verified 12/10/24 11:26) discomfort, no swelling or pain Medication List - Last Reconciled 12/10/24 by Selma Payton MD aripiprazole (Abilify) 5 mg PO BEDTIME lisinopril 5 mg PO BID rosuvastatin 10 mg PO DAILY Tobacco use date assessed: 12/10/24 Dental Screening Dental Screen Date: 12/10/24 Did you have a dental visit in the last 12 months?: Yes Did you have a dental problem in the last 6 months where you did not have access to dental care?: No Was dental information given to patient?: Patient has dentist HPI Annual PE HPI Details Pt presents for PE. [facility] Medical History (Updated 12/10/24 @ 11:58 by Selma Payton MD) Cough Normal colonoscopy Annual physical exam Psychosis Depression Chronic anxiety Hyperlipidemia HTN (hypertension) Surgical History Hx of cholecystectomy Family History Father Glaucoma Mother Arthritis Maternal Aunt Breast cancer Social History Household Members: Spouse Housing: House Do you presently have visiting nurse or other home services: No Alcohol intake: current Alcohol intake frequency: does not drink Patient Tobacco Use Status: Never used Tobacco e-Cigarette/Vaping Use: Never Used service: No Current occupational status: employed Sexual orientation: Straight/Heterosexual Cognitive needs: No Hearing needs: No Vision needs: Yes Female Reproductive History Menstrual Age of Menarche: 12 Questionnaire PHQ-9 Over the last 2 weeks, how often have you been bothered by any of the following problems? 1. Little interest or pleasure in doing things: not at all 2. Feeling down, depressed, or hopeless: several days 3. Trouble falling or staying asleep, or sleeping too much: not at all 4. Feeling tired or having little energy: several days 5. Poor appetite or overeating: not at all 6. Feeling bad about yourself - or that you are a failure or have let yourself or your family down: not at all 7. Trouble concentrating on things, such as reading the newspaper or watching television: not at all 8. Moving or speaking so slowly that other people could have noticed. Or the opposite - being so fidgety or restless that you have been moving around a lot more than usual: not at all 9. Thoughts that you would be better off or of hurting yourself in some way: not at all Total score: 2 Depression Screening Interpretation: Negative Depression Screening Done: Yes 98942 - PHQ-9 Billing: Yes Source: Developed by Drs. Theo Rojas, Milka Tsang, Harmeet Obrien and colleagues, with an educational grey from [employer]. Thrive Questionnaire Date Thrive assessed: 12/10/24 I am a: Patient What is your living situation today?: I choose not to answer this question Within the past 12 months, did the food you bought not last and you didn't have the money to get more?: I choose not to answer this question Within the past 12 months, did you worry whether your food would run out before you got money to buy more?: I choose not to answer this question Do you have trouble paying for medicines?: No Do you have trouble getting transportation to medical appointments?: No Do you have trouble paying your heating and electricity bill?: No Do you have trouble taking care of your child, family member or friend?: No Do you have trouble with day-to-day activities such as bathing, preparing meals, shopping, managing finances, etc.?: No Are you currently unemployed and looking for a job?: No Are you interested in more education?: No Please select the resources that you would like help with: None THRIVE Score: 0 AUDIT C Alcohol Use Questionnaire (AUDIT-C) 1. How often do you have a drink containing alcohol?: Never 3. How often do you have six or more drinks on one occasion?: Never Total Score: 0 RPIMO-7 AMB Questionnaire PRIMO-7 Date PRIMO - 7 assessed: 12/10/24 Feeling nervous, anxious, or on edge: 0 = Not at all Not being able to stop or control worryin = Not at all Worrying too much about different things: 0 = Not at all Trouble relaxin = Not at all Being so restless that it is hard to sit still: 0 = Not at all Becoming easily annoyed or irritable: 0 = Not at all Feeling afraid as if something awful might happen: 0 = Not at all Total PRIMO-7 score (0-4 normal; 5-9 mild; 10-14 moderate; 15-21 severe): 0 Source: Developed by Drs. Theo Rojas, Milka Tsang, Harmeet Obrien and colleagues, with an educational grey from [employer]. PRIMO-7 Assessment Billing PRIMO-7 Assessment Tool: PRIMO-7 Assessment 05430 Review of Systems Const All systems reviewed & are unremarkable except as noted in HPI and below Eyes Reports no additional complaints ENT Reports no additional complaints Card Reports no additional complaints Resp Reports no additional complaints GI Reports no additional complaints Reports no additional complaints Physical exam (Primary Care) Vital Signs: Last Vital Signs Temp 98.2 F 12/10/24 11:26 Pulse 79 12/10/24 11:26 Resp 18 12/10/24 11:26 BP 110/76 12/10/24 11:26 Pulse Ox 98 12/10/24 11:26 Oxygen Delivery Method Room Air 12/10/24 11:26 BMI result Body Mass Index 30.2 Tobacco/Smoking Status: Tobacco use Status Tobacco use date assessed 12/10/24 12/10/24 11:33 Patient Tobacco Use Status Never used Tobacco 12/10/24 11:33 e-Cigarette/Vaping Use Never Used 12/10/24 11:33 PHQ-9: PHQ-9 Score PHQ-9: Total score 2 12/10/24 11:33 Depression Screening Interpretation: Negative Thrive Assessment: Date of Thrive Assessment Date Thrive assessed 12/10/24 12/10/24 11:33 Const General: no acute distress HENMT Ears: TM's normal bilaterally Face and sinus: Yes normal facial exam Throat: Yes posterior oropharynx normal Eyes General: appearance normal, both eyes and all related structures Neck Neck: Yes no lymphadenopathy and Yes supple Resp Effort & Inspection: normal respiratory effort Auscultation: clear to auscultation bilaterally Cardio Rhythm: regular rhythm Heart sounds: S1 normal heart sound present and S2 normal heart sound present GI Inspection: Yes normal to inspection Palpation (GI): Soft to palpation Percussion: Yes normal to percussion Auscultation: normal bowel sounds Coding Level of Care Code Est Pt Prev Care 40-64y(94038) Diagnoses Bipolar disorder with psychotic features F31.9 HTN (hypertension) I10 Hyperlipidemia E78.5 Annual physical exam Z00.00 Additional Codes PRIMO-7 Assessment Billing - PRIMO-7 Assessment Tool: PRIMO-7 Assessment 78086 ([id number]) PHQ-9 - 37043 - PHQ-9 Billing: Yes ([id number]) Assessment & Plan Assessment & Plan (1) Bipolar disorder with psychotic features: Comment: f/u with psychiatry Code(s): F31.9 - Bipolar disorder, unspecified Category: Medical Plan: Stable on Abilify. 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 Cologuard will be ordered. Orders: Orders Lipid Panel Today E78.5 - Hyperlipidemia, unspecified, I10 - Essential (primary) hypertension Comprehensive [place]. Panel Fast Today E78.5 - Hyperlipidemia, unspecified, I10 - Essential (primary) hypertension Hemoglobin A1c Today E78.5 - Hyperlipidemia, unspecified, I10 - Essential (primary) hypertension Referrals Cologuard Test Z12.11 - Encounter for screening for malignant neoplasm of colon, Z12.12 - Encounter for screening for malignant neoplasm of rectum Medications: Refilled rosuvastatin 10 mg PO DAILY 90 tabs 3RF
== END 2024-12-10 12:49 | disposition home or self-care (01) ==
LOC: HO.HMCC 11:25
PROVIDERS: PCP Internal Medicine; Visit Provider Internal Medicine
DX: F31.9 Bipolar disorder, unspecified (principal); I10 Essential (primary) hypertension; E78.5 Hyperlipidemia, unspecified; Z00.00 Encounter for general adult medical examination without abnormal findings

== ENCOUNTER → 2024-12-10 11:24 | Outpatient (BNVA) | payer BC, SELFPAY | PROVIDERS: PCP Internal Medicine; Visit Provider Internal Medicine | DX: Z00.00 Encounter for general adult medical examination without abnormal findings (principal); F31.9 Bipolar disorder, unspecified; I10 Essential (primary) hypertension; E78.5 Hyperlipidemia, unspecified; Z79.899 Other long term (current) drug therapy | CPT/HCPCS: 96127 ==

== ENCOUNTER 2024-12-11 09:06 | Outpatient (REF) | payer BC, SELFPAY ==
[2024-12-11 12:42] LABS: Alanine Aminotransferase 49 U/L (0-31); Albumin Level 4.2 g/dL (3.5-5.0); Anion Gap 12 (12-20); Aspartate Amino Transferase 32 U/L (5-31); Bilirubin Total 0.8 mg/dL (0.0-1.0); Blood Urea Nitrogen 11 mg/dL (9-16); Calcium 9.2 mg/dL (8.4-10.2); Carbon Dioxide 24 mmol/L (22-29); Chloride 111 mmol/L (96-108); Cholesterol 159 mg/dL (<200); Estimated Glomerular Filt Rate > 60; Glucose Fasting 104 mg/dL (60-99); HDL Cholesterol 45 mg/dL (>40); LDL Cholesterol Calculated 78 mg/dL (<100); Potassium 3.8 mmol/L (3.3-5.1); Sodium 143 mmol/L (135-145); Total Protein 6.6 g/dL (6.5-8.0); Triglycerides 181 mg/dL (<150)
[2024-12-11 12:48] LABS: Estimated Average Glucose 100 mg/dL; Hemoglobin A1C 136.2418 umol/L; Hemoglobin A1c % 5.1 % (<6.0); Total Hemoglobin (HGBA1C) 4164.7345 umol/L
[2024-12-11 13:11] LABS: Alkaline Phosphatase 70 U/L (39-117)
== END 2024-12-11 09:07 | disposition home or self-care (01) ==
LOC: HO.HMGCLDS 09:06
PROVIDERS: PCP Internal Medicine; Visit Provider Internal Medicine
DX: Z13.1 Encounter for screening for diabetes mellitus (principal); E78.5 Hyperlipidemia, unspecified; I10 Essential (primary) hypertension
CPT/HCPCS: 36415; 80053; 80061; 83036